=== PATIENT | male | born 1965 | race Caucasian/White ===

== ENCOUNTER 2021-11-08 19:22 | Inpatient (IN) ==
[2021-11-08] MEDS ORDERED: SODIUM CHLORIDE 0.9% 500 ML IV ONE (19:41)
[2021-11-08 20:00] LABS: Basophils # (auto) 0.04 K/uL (0-0.2); Basophils % (auto) 0.3 %; Eosinophils # (auto) 0.12 K/uL (0-0.5); Eosinophils % (auto) 0.9 %; Hematocrit (blood only) 50.5 % (42-52); Hemoglobin 18.1 g/dL (14.0-18.0); Immature Granulocytes # (auto) 0.05 K/uL (0.00-0.02); Immature Granulocytes % (auto) 0.4 %; Lymphocytes # (auto) 3.11 K/uL (1.2-3.4); Lymphocytes % (auto) 23.7 %; Mean Corpuscular Hemoglobin 33.5 pg (25-34); Mean Corpuscular Hgb Conc 35.8 g/dL (32-36); Mean Corpuscular Volume 93.5 fL (80-100); Mean Platelet Volume 9.5 fL (7.4-10.4); Monocytes # (auto) 1.05 K/uL (0.11-0.59); Neutrophils # (auto) 8.73 K/uL (1.4-6.5); Neutrophils % (auto) 66.7 %; Platelet Count 211 K/uL (130-400); RDW Coefficient of Variation 13.5 % (11.5-14.5); RDW Standard Deviation 46.4 fL (36.4-46.3)
[2021-11-08] MEDS ORDERED: FAMOTIDINE 20MG IV PUSH 20 MG/5 ML SYR IV STA (20:01)
--- NOTE | 2021-11-08 20:08 | Emergency Department Note ---
Impression & Plan NSTEMI (non-ST elevated myocardial infarction), CAD (coronary artery disease), S/P coronary artery stent placement ED Provider Note NAME: TU ARCHER AGE: 56 SEX: M ARRIVES VIA: Walk-In INFORMANT: Patient ED PROVIDER(S): Kevon Johansen MD CHIEF COMPLAINT: Chest pain PLAN: Disposition: Admit MEDICAL DECISION MAKING: The patient is a pleasant 56-year-old gentleman with a past medical history of CAD with history of SD in 2016 status post PCI who presents emergency department, by his for evaluation of substernal chest pain that he felt r adiates to his shoulder and arm which initially began this morning at 4 AM and woke him up from sleep. He reports he took a nitroglycerin at that time and the symptoms resolved over the course of an hour. He reports he was doing fine the rest of the day doing his normal activities and then took a nap around 4:00 but then woke up again around 530 with similar symptoms that have been constant sin e then. He reports he did go to bed last night at 2 AM which is not abnormal for him and he did have 2 slices of pizza prior to that. He does admit that he has a history of acid reflux and this feels somewhat like that as well. But he also reports that this feels somewhat like when he had his heart attack. He denies any recent fevers, chills, cough, congestion, diarrhea/constipation or symptoms. He reports he has not f/u with cardiology in several years. He has not needed to use his nitroglycerin since shortly after his stent in 2016. He takes a daily baby ASA. On arrival patient is no acute distress, afebrile stable vital signs. He appears clinically dry. Exam is otherwise unremarkable. EKG demonstrates anterior lateral ST and T wave abnormality without overt ST elevation. WBC 13K nonspecific. H/H 18.1/50.5 without recent values for comparison but in the setting of history of daily smoking. Platelets within normal limits. Chemistry without metabolic acidosis. Electrolytes without significant abnormality. AST 48, nonspecific. Initial high-sensitivity troponin was elevated at 2400. Lipase within normal limits. Upon reevaluation the patient denied any significant improvement in his symptoms after IV fluid hydration and IV Pepcid. Repeat EKG was performed and demonstrated more prominent T wave inversions V4-V6 but no overt ST elevation. The patient was given full dose aspirin and nitroglycerin. Case was discussed with Dr. Mercado, interventional cardiology on-call. Appreciate recommendations. We will continue with treatment for NSTEMI with heparin and pain control. If pain is able to be controlled then likely can have catheterization tomorrow. If the patient worsens and pain is not controlled then may consider intervention sooner. Upon re-evaluation the patient did feel significantly improved following SL nitroglycerin x3 and IV Fentanyl 50mcg x 1. Case was discussed with Dr. Melchor, [facility] hospitalist, who will evaluate the patient for admission. NTG paste ordered. Triage Nursing notes reviewed and agree them. Prior medical records reviewed Vital Signs: reviewed and remarkable for no significant abnormalities Differential diagnosis: Cardiac ischemia, aortic dissection, pulmonary embolism, pneumothorax, pneumonia, pericarditis, myocarditis, esophageal rupture, GERD, cholecystitis, pancreatitis, musculoskeletal, as well as other pathologies. ER treatment provided: See below. Diagnostics interpreted by me: ECG 1935: Sinus rhythm, 63 bpm, no ectopy, incomplete right bundle branch block, ST and T wave abnormality anterolaterally. No overt ST elevation or depression, QTC 403, QRS 110. ECG 2053: Sinus bradycardia, 58 bpm, no ectopy, incomplete right bundle branch block, ST abnormality with more evident TWI V4-V6. No overt ST elevation or depression, QTC 414, QRS 102. Cardiac Monitoring: An order for continuous cardiac monitoring was placed and demonstrated Sinus rhythm, 63 bpm, no ectopy. Laboratory studies: See below Imaging studies: See below Consultation(s): Dr. Mercado, interventional cardiology. Dr. Melchor [facility] hospitalist. HPI: The patient is a pleasant 56-year-old gentleman with a past medical history of CAD with history of SD in 2016 status post PCI who presents emergency de partment, by his for evaluation of substernal chest pain that he felt radiates to his shoulder and arm which initially began this morning at 4 AM and woke him up from sleep. He reports he took a nitroglycerin at that time and the symptoms resolved over the course of an hour. He reports he was doing fine the rest of the day doing his normal activities and then took a nap around 4:00 but then woke up again around 530 with similar symptoms that have been constant since then. He reports he did go to bed last night at 2 AM which is not abnormal for him and he did have 2 slices of pizza prior to that. He does admit that he has a history of acid reflux and this feels somewhat like that as well. But he also reports that this feels somewhat like when he had his heart attack. He denies any recent fevers, chills, cough, congestion, diarrhea/constipation or symptoms. He reports he has not f/u with cardiology in several years. He has not needed to use his nitroglycerin since shortly after his stent in 2016. He takes a daily baby ASA. ROS: See above HPI for pertinent positives & negatives. A total of 10 systems reviewed and were otherwise negative. VITALS:See Below PHYSICAL EXAMINATION: GENERAL: Awake, alert, well-appearing, in no distress HENT: Normocephalic, atraumatic. Oropharynx with dry mucous membranes and otherwise unremarkable. EYES: Normal conjunctiva. Sclera non-icteric. NECK: Supple. No nuchal rigidity. FROM. No JVD. RESPIRATORY: Clear to auscultation. CARDIAC: Regular rate, normal rhythm. Extremities warm and well perfused. Pulses equal. ABDOMEN: Soft, non-distended. No tenderness to palpation. No rebound or guarding. No masses. RECTAL: Deferred. MUSCULOSKELETAL: Chest examination reveals no tenderness. The back is symmetrical on inspection without obvious abnormality. There is no CVA tenderness to palpation. No joint edema. LOWER EXTREMITIES: Calves are equal size bilaterally and non-tender. No edema. No discoloration. NEURO: Normal sensorium. No sensory or motor deficits noted. SKIN: No rash or jaundice noted. ED COURSE: Critical Care: I have personally spent greater than 75 minutes of critical care time in the direct management of this patient. This includes bedside care, interpretation of diagnostic studies, and testing, discussion with consultants, patient, and family members, and other required patient management activities. This 75 minutes is in excess of all separately billable procedures. Kevon Johansen MD Past Med/Surg History Medical History (Updated 11/10/21 @ 11:04 by Kevon Johansen MD) CAD (coronary artery disease) Dyslipidemia NSTEMI (non-ST elevated myocardial infarction) Tobacco abuse Surgical History (Updated 11/10/21 @ 11:04 by Kevon Johansen MD) Hx of appendectomy Hx of cholecystectomy S/P coronary artery stent placement Social History Smoking Status: Current every day smoker Tobacco Type: Cigarettes Cigarettes Per Day: 1 pack; Smoking End Date: 11/08/2021; Second Hand Exposure: No; Do You Dip or Chew Tobacco: No; Tobacco Cessation Education Requested by Patient: Yes Hx Alcohol Use: No Hx Substance Use: No Preferred Language: Turkish Communication Ability: Effective Domestic Housekeeper Required: No Beliefs That Will Affect Care: None Current Living Situation: Spouse and Family Current Living Situation Comment: Lives at home w/ spouse and 2 children. Other Information That Helps Us Care for You: Yes (States that he quit smoking today.) Feels Safe at Home: Yes Safety Concerns: Feels Safe At This Time Assistive Devices: None Allergies Allergies Allergy/AdvReac Type Severity Reaction Status Date / Time Cephalosporins Allergy Severe HIVES Unverified 11/08/21 21:54 Home Meds Home Medications Medication Instructions Recorded Confirmed No Known Home Medications 11/08/21 11/08/21 Results & Data (ED) Vital Signs Vital Signs - 24 hr 11/08/21 19:27 11/08/21 19:49 11/08/21 21:22 Temperature 36.4 C L Temperature Source Temporal Artery Scan Pulse Rate 73 Pulse Rate [Apical] 71 Respiratory Rate 20 19 Respiratory Effort / Characteristics Non-Labored Respiratory Depth Normal Blood Pressure 116/77 Blood Pressure [Left Arm] 113/74 Blood Pressure Mean 90 Blood Pressure Mean [Left Arm] 87 Blood Pressure Position Sitting Pulse Oximetry 96 96 95 Oxygen Delivery Method Room Air Room Air Room Air Sepsis Recent Fever Within 48 Hours No Sepsis New/Unexplained Change in Mental Status N/A Sepsis Action Taken by Nursing No Action Required 11/08/21 23:00 Temperature Temperature Source Pulse Rate Pulse Rate [Apical] 61 Respiratory Rate 15 Respiratory Effort / Characteristics Respiratory Depth Blood Pressure Blood Pressure [Left Arm] 101/65 Blood Pressure Mean Blood Pressure Mean [Left Arm] 77 Blood Pressure Position Pulse Oximetry 95 Oxygen Delivery Method Room Air Sepsis Recent Fever Within 48 Hours Sepsis New/Unexplained Change in Mental Status Sepsis Action Taken by Nursing Laboratory Data Attestation: I reviewed the patient's lab results. Result diagrams: 11/10/21 05:34 11/10/21 05:34 Lab Results 11/08/21 11/08/21 11/08/21 Range/Units 19:43 19:43 19:43 WBC 13.10 H (4.8-10.8) K/uL RBC 5.40 (4.7-6.1) M/uL Hgb 18.1 H (14.0-18.0) g/dL Hct 50.5 (42-52) % MCV 93.5 (80-100) fL MCH 33.5 (25-34) pg MCHC 35.8 (32-36) g/dL RDW Std Deviation 46.4 H (36.4-46.3) fL RDW Coeff of Susanne 13.5 (11.5-14.5) % Plt Count 211 (130-400) K/uL MPV 9.5 (7.4-10.4) fL Immature Gran % (Auto) 0.4 % Neut % (Auto) 66.7 % Lymph % (Auto) 23.7 % [place] % (Auto) 8.0 % Eos % (Auto) 0.9 % Baso % (Auto) 0.3 % Neut # (Auto) 8.73 H (1.4-6.5) K/uL Lymph # (Auto) 3.11 (1.2-3.4) K/uL [place] # (Auto) 1.05 H (0.11-0.59) K/uL Eos # (Auto) 0.12 (0-0.5) K/uL Baso # (Auto) 0.04 (0-0.2) K/uL Immature Gran # (Auto) 0.05 H (0.00-0.02) K/uL APTT (21.0-31.0) Seconds PTT Ratio Sodium 135 L (136-145) mmol/L Potassium 4.1 (3.5-5.1) mmol/L Chloride 102 (98-107) mmol/L Carbon Dioxide 26 (21-32) mmol/L Anion Gap 7 (3-11) BUN 12 (6-23) mg/dl Creatinine 1.01 (0.6-1.4) mg/dl Est Cr Clr Drug Dosing 109.6 ml/min Est GFR ( Amer) 95.9 ml/min Est GFR (Non-Af Amer) 82.8 ml/min BUN/Creatinine Ratio 11.9 (10-20) Glucose 110 H (70-99(Fasting)) mg/dl Calcium 9.6 (8.5-10.1) mg/dl Phosphorus 3.8 (2.5-4.9) mg/dl Magnesium 2.0 (1.7-2.4) mg/dl Total Bilirubin 0.8 (0.2-1.0) mg/dl AST 48 H (13-39) U/L ALT 41 (7-52) U/L Alkaline Phosphatase 68 (34-104) U/L Troponin I High Sens 2457.1 H* (0-20) pg/ml Total Protein 7.0 (6.0-8.3) gm/dl Albumin 4.4 (3.4-5.0) gm/dl Globulin 2.6 (2.5-4.0) gm/dl Albumin/Globulin Ratio 1.7 (0.9-2) Lipase 50 (11-82) U/L SARS-CoV-2, RNA, NAAT (NEGATIVE) 11/08/21 11/08/21 Range/Units 19:43 21:34 WBC (4.8-10.8) K/uL RBC (4.7-6.1) M/uL Hgb (14.0-18.0) g/dL Hct (42-52) % MCV (80-100) fL MCH (25-34) pg MCHC (32-36) g/dL RDW Std Deviation (36.4-46.3) fL RDW Coeff of Susanne (11.5-14.5) % Plt Count (130-400) K/uL MPV (7.4-10.4) fL Immature Gran % (Auto) % Neut % (Auto) % Lymph % (Auto) % [place] % (Auto) % Eos % (Auto) % Baso % (Auto) % Neut # (Auto) (1.4-6.5) K/uL Lymph # (Auto) (1.2-3.4) K/uL [place]pton # (Auto) (0.11-0.59) K/uL Eos # (Auto) (0-0.5) K/uL Baso # (Auto) (0-0.2) K/uL Immature Gran # (Auto) (0.00-0.02) K/uL APTT 27.9 (21.0-31.0) Seconds PTT Ratio 1.0 Sodium (136-145) mmol/L Potassium (3.5-5.1) mmol/L Chloride (98-107) mmol/L Carbon Dioxide (21-32) mmol/L Anion Gap (3-11) BUN (6-23) mg/dl Creatinine (0.6-1.4) mg/dl Est Cr Clr Drug Dosing ml/min Est GFR ( Amer) ml/min Est GFR (Non-Af Amer) ml/min BUN/Creatinine Ratio (10-20) Glucose (70-99(Fasting)) mg/dl Calcium (8.5-10.1) mg/dl Phosphorus (2.5-4.9) mg/dl Magnesium (1.7-2.4) mg/dl Total Bilirubin (0.2-1.0) mg/dl AST (13-39) U/L ALT (7-52) U/L Alkaline Phosphatase (34-104) U/L Troponin I High Sens (0-20) pg/ml Total Protein (6.0-8.3) gm/dl Albumin (3.4-5.0) gm/dl Globulin (2.5-4.0) gm/dl Albumin/Globulin Ratio (0.9-2) Lipase (11-82) U/L SARS-CoV-2, RNA, NAAT NEGATIVE (NEGATIVE) Administered Medications Aspirin (Aspirin 81 Mg Ectab) 81 mg PO [facility] Stop: 12/09/21 09:44 Last Admin: 11/10/21 08:20 Dose: 81 mg Documented by: [id number] Admin: 11/09/21 10:17 Dose: 81 mg Documented by: [id number] Atorvastatin Calcium (Atorvastatin 40 Mg Tab) 40 mg PO [facility] Stop: 12/09/21 20:59 Last Admin: 11/09/21 20:56 Dose: 40 mg Documented by: [id number] Nitroglycerin (Nitroglycerin Sl 0.4 Mg/Tab Tab) 0.4 mg SL UD PRN PRN Reason: Chest Pain Stop: 12/08/21 20:40 Last Admin: 11/08/21 21:06 Dose: 0.4 mg Documented by: [id number] Admin: 11/08/21 20:55 Dose: 0.4 mg Documented by: [id number] Discontinued Medications Aspirin (Aspirin Chew 324 Mg) 324 mg PO NOW STA Stop: 11/08/21 20:42 Last Admin: 11/08/21 20:54 Dose: 324 mg Documented by: [id number] Atropine Sulfate (Atropine Sulfate 0.1 Mg/Ml 10ml Syr) Confirm Administered Dose 1 mg IV .ST-MED ONE Stop: 11/09/21 13:48 Last Admin: 11/10/21 07:24 Dose: Not Given Documented by: [id number] Clopidogrel Bisulfate (Clopidogrel Bisulfate 300 Mg Tab) Confirm Administered Dose 600 mg .ROUTE .ST-[facility] ONE Stop: 11/09/21 14:13 Last Admin: 11/09/21 15:15 Dose: Not Given Documented by: [id number] Fentanyl Citrate (Fentanyl Citrate 100 Mcg/2 Ml Vial) 50 mcg IV NOW STA Stop: 11/08/21 21:30 Last Admin: 11/08/21 21:47 Dose: 50 mcg Documented by: [id number] Fentanyl Citrate (Fentanyl Citrate 100 Mcg/2 Ml Vial) Confirm Administered Dose 100 mcg .ROUTE .ST-MED ONE Stop: 11/09/21 12:25 Last Increment: 11/09/21 14:11 Dose: 75 mcg Documented by: [id number] Heparin Sodium (Porcine) (Heparin Sod (Porcine) 1000 Unit/Ml) 1 units IV NOW ONE Stop: 11/08/21 21:24 Last Admin: 11/08/21 21:28 Dose: 4,000 units Documented by: [id number] Cosigned by: [id number] Heparin Sodium (Porcine) (Heparin Sod (Porcine) 1000 Unit/Ml) 4,000 units IV NOW ONE Stop: 11/09/21 05:16 Last Admin: 11/09/21 05:19 Dose: 4,000 units Documented by: [id number] Cosigned by: [id number] Heparin Sodium (Porcine) (Heparin (Porcine) 1000 Unit/Ml 10 Ml (Senior Pastor Use Only)) Confirm Administered Dose 10,000 units .ROUTE .ST-MED ONE Stop: 11/09/21 12:25 Last Admin: 11/09/21 13:57 Dose: 8,000 units Documented by: [id number] Heparin Sodium/Dextrose (Heparin Iv Adult Wt-Based Low-Dose With Bolus Protocol) 1 ea N/A NOW STA; Protocol Stop: 11/08/21 21:08 Last Admin: 11/08/21 23:32 Dose: Not Given Documented by: [id number] Heparin Sodium/Sodium Chloride (Heparin In Nss Infusion 1000 Unit/500 Ml (2 U/Ml) Bag) Confirm Administered Dose 3,000 units IV .STK-MED ONE Stop: 11/09/21 12:25 Last Admin: 11/09/21 13:09 Dose: 3,000 units Documented by: [id number] Sodium Chloride (Nss) 500 mls @ 999 mls/hr IV .Q31M ONE Stop: 11/08/21 20:11 Last Infusion: 11/08/21 20:24 Dose: 0 mls/hr Documented by: [id number] Admin: 11/08/21 19:49 Dose: 999 mls/hr Documented by: [id number] Famotidine (Pepcid 20mg Iv Push) 20 mg in 5 mls @ 2.5 mls/min IV NOW STA Stop: 11/08/21 20:02 Last Admin: 11/08/21 20:07 Dose: 2.5 mls/min Documented by: [id number] Heparin Sodium/Dextrose (Heparin Sodium/Dextrose) 25,000 units in 500 mls @ 24 mls/hr IV .[id number] [facility]; Protocol Stop: 12/08/21 21:29 Last Titration: 11/09/21 15:54 Dose: 0 units/hr, 0 mls/hr Documented by: [id number] Cosigned by: [id number] Titration: 11/09/21 05:21 Dose: 1,200 units/hr, 24 mls/hr Documented by: [id number] Cosigned by: [id number] Admin: 11/08/21 21:29 Dose: 1,000 units/hr, 20 mls/hr Documented by: [id number] Cosigned by: [id number] Sodium Chloride (Nss 1000ml) 1,000 mls @ 150 mls/hr IV .[id number] [facility]AC[facility] Stop: 11/09/21 01:47 Last Infusion: 11/09/21 09:28 Dose: 0 mls/hr Documented by: [id number] Admin: 11/09/21 01:40 Dose: 150 mls/hr Documented by: [id number] Metoprolol Tartrate (Metoprolol Tartrate 25 Mg Tab) 25 mg PO ONE STA Stop: 11/09/21 09:06 Last Admin: 11/09/21 09:52 Dose: 25 mg Documented by: [id number] Midazolam HCl (Midazolam Hcl 1 Mg/Ml 2ml Vial) Confirm Administered Dose 2 mg .ROUTE .STK-MED ONE Stop: 11/09/21 12:25 Last Admin: 11/09/21 14:05 Dose: 2 mg Documented by: [id number] Nicardipine HCl (Nicardipine Hcl Inj 2.5 Mg/Ml 10 Ml Amp) Confirm Administered Dose 25 mg .ROUTE .STK-MED ONE Stop: 11/09/21 12:25 Last Admin: 11/09/21 13:09 Dose: 25 mg Documented by: [id number] Nitroglycerin (Nitroglycerin 2% Ointment 30gm Tube) 1 inch EXT NOW STA Stop: 11/08/21 22:27 Last Admin: 11/09/21 01:36 Dose: Not Given Documented by: [id number] Nitroglycerin/Dextrose (Nitroglycerin/D5w 100mcg/Ml 20ml Syr) Confirm Administered Dose 2,000 mcg .ROUTE .STK-MED ONE Stop: 11/09/21 12:26 Last Admin: 11/09/21 13:09 Dose: 2,000 mcg Documented by: [id number] Potassium Chloride (Potassium Chloride 20meq/15ml 473ml) 30 meq PO ONE ONE Stop: 11/10/21 07:46 Last Admin: 11/10/21 08:20 Dose: 30 meq Documented by: [id number] Imaging Data Radiologist's Impression: Chest X-Ray 11/08/21 19:41 XR chest 1V portable HISTORY: Atypical Chest Pain COMPARISON: Chest 11/20/2015. FINDINGS: The cardiac silhouette remains borderline enlarged. There is mild diffuse interstitial thickening, unchanged. No new focal lung consolidations to suggest pneumonia. No evidence for pulmonary edema. No pleural effusions. No pneumothorax. Spinal stimulator leads are again noted. IMPRESSION: No significant change compared to the prior study. No acute process. ACT 112: Negative or not required by law. Electronically signed by: Joel Nolasco M.D. 11/08/2021 8:15 PM Discharge Plan Visit Data Chief Complaint: Chest Pain Stated Complaint: PAIN RADIATING DOWN L ARM, HEART BURN ED Provider: Kevon Johansen Discharge Problem: NSTEMI (non-ST elevated myocardial infarction), CAD (coronary artery disease), S/P coronary artery stent placement Patient Disposition: Admitted As Inpatient Discharge Instructions Interventions: ED Discharge Assessment Last Done: 11/09/21 00:21 Discharge Problem: CAD (coronary artery disease) Qualifiers: Coronary Disease-Associated Artery/Lesion type: unspecified vessel or lesion type [place] vs. transplanted heart: [place] heart Associated angina: with unspecified form of angina Qualified Code(s): I25.119 - Atherosclerotic heart disease of [place] coronary artery with unspecified angina pectoris
--- NOTE | 2021-11-08 20:17 | XRay Report ---
XR chest 1V portable HISTORY: Atypical Chest Pain COMPARISON: Chest 11/20/2015. FINDINGS: The cardiac silhouette remains borderline enlarged. There is mild diffuse interstitial thic kening, unchanged. No new focal lung consolidations to suggest pneumonia. No evidence for pulmonary e sandie. No pleural effusions. No pneumothorax. Spinal stimulator leads are again noted. IMPRESSION: No significant change compared to the prior study. No acute process. ACT 112: Negative or not required by law. Electronically signed by: Joel Nolasco M.D. 11/08/2021 8:15 PM
[2021-11-08 20:32] LABS: Albumin Globulin Ratio 1.7 (0.9-2); Albumin Level 4.4 gm/dl (3.4-5.0); BUN Creatinine Ratio 11.9 (10-20); Bilirubin,Total 0.8 mg/dl (0.2-1.0); Calcium 9.6 mg/dl (8.5-10.1); Creatinine Clr Calc Pharmacy 109.6 ml/min; Est GFR (African American) 95.9 ml/min; Est GFR (Non-African American) 82.8 ml/min; Globulin 2.6 gm/dl (2.5-4.0); Phosphorus 3.8 mg/dl (2.5-4.9); Potassium 4.1 mmol/L (3.5-5.1)
[2021-11-08] MEDS ORDERED: ASPIRIN CHEW 324 MG PO STA (20:41)
[2021-11-08] MEDS: NITROGLYCERIN SL 0.4 MG/TAB TAB SL PRN ×2 (20:55→21:06)
[2021-11-08] MEDS ORDERED: Heparin IV Adult Wt-Based Low-Dose WITH Bolus Protocol STA (21:07)
[2021-11-08] MEDS ORDERED: HEPARIN SOD (PORCINE) 1000 UNIT/ML IV ONE (21:23)
[2021-11-08] MEDS ORDERED: fentaNYL citrate 100 MCG/2 ML VIAL IV STA (21:29)
[2021-11-08] MEDS ORDERED: HEPARIN SODIUM/DEXTROSE 25,000 UNITS/500 ML BAG IV SCH (21:30)
[2021-11-08 21:40] LABS: Partial Thromboplastin Time 27.9 Seconds (21.0-31.0)
[2021-11-08] MEDS ORDERED: NITROGLYCERIN 2% OINTMENT 30GM TUBE EXT STA (22:26)
--- NOTE | 2021-11-08 23:19 | History & Physical Report ---
Date of Service November 08, 2021 Assessment & Plan (1) NSTEMI (non-ST elevated myocardial infarction): Plan: 56 yo male with PMHx of CAD s/p MN in 2016 with stent placement presenting with chest pain similar to prior MN. HS-trop elevated at 2457, EKG w/o ST elevations. -Admit to PCU -Continue to trend troponin until peak -Check 2D echo -Continue heparin gtt -BPs soft on admission w/ systolic at 100 will give 1L NSS IVF bolus -Encouraged smoking cessation -Cardiology consultation appreciated -Will keep patient NPO for possible catheterization tomorrow History of Present Illness Primary Care Provider: Torito Mercado MD Patient is a 56 yo male with PMHx of CAD with MN 11/2015 s/p PCI being admitted for NSTEMI. Patient states that he initially began to have left sided chest pressure and "heart burn" sensation around 0400 this morning. He took a nitroglycerin which relieved the pain. Patient slept throughout the day and did not have any PO intake. He woke from his nap around 1730 with similar left sided chest pain, nausea, and vomiting x1. Pain has been constant since that time. Pain initially 8/10 and now slightly improved to a 5/10. Patient notes that this feels similar to his hx of MN as well as his hx of GERD. He takes ASA 81mg qAM but is otherwise on no other home medications. Patient is a tobacco user and smokes about 1ppd. No alcohol use. Patient denies recent illness and states that prior to this morning he was in his usual state of health. Patient denies fever, chills, congestion, sinus pain, SOB, cough, abd pain, weakness, fatigue, numbness, tingling, urinary symptoms (e.g. dysuria or hematuria), or any other symptoms. In the ED, patient was found to have a high sensitivity troponin of 2457. WBC 13.1. H&H 18.1 & 50.5 EKG shows incomplete RBBB and T wave changes in the lateral leads which is new compared to EKG from 11/2015. COVID negative. Allergies Allergy/AdvReac Type Severity Reaction Status Date / Time Cephalosporins Allergy Severe HIVES Unverified 11/08/21 21:54 Home Medications Medication Instructions Recorded Confirmed Type No Known Home Medications 11/08/21 11/08/21 History Past Med/Surg History Medical History (Updated 11/09/21 @ 09:36 by Daniel Damian MD) CAD (coronary artery disease) Dyslipidemia NSTEMI (non-ST elevated myocardial infarction) Tobacco abuse Surgical History (Updated 11/09/21 @ 09:36 by Daniel Damian MD) Hx of appendectomy Hx of cholecystectomy S/P coronary artery stent placement Social History Smoking Status: Current every day smoker Tobacco Type: Cigarettes Cigarettes Per Day: 1 pack; Smoking End Date: 11/08/2021; Second Hand Exposure: No; Do You Dip or Chew Tobacco: No; Tobacco Cessation Education Requested by Patient: Yes Hx Alcohol Use: No Hx Substance Use: No Preferred Language: Persian Communication Ability: Effective Clinical Support Specialist Required: No Beliefs That Will Affect Care: None Current Living Situation: Spouse and Family Current Living Situation Comment: Lives at home w/ spouse and 2 children. Other Information That Helps Us Care for You: Yes (States that he quit smoking today.) Feels Safe at Home: Yes Safety Concerns: Feels Safe At This Time Assistive Devices: None Review of Systems Review of Systems: See HPI Physical Exam Physical Exam: GENERAL: No acute distress. Well developed and well nourished. A/O x3. EYES: PERRLA. EOMI. Anicteric sclerae. HENT: Edentulous. Moist mucous membranes. No pharyngeal erythema or exudates. RESPIRATORY: Clear to auscultation bilaterally. No wheezing, rales, or rhonchi. CARDIOVASCULAR: Regular rate and rhythm. No murmurs. ABDOMEN: Soft, non-tender and non-distended. Normal bowel sounds. EXTREMITIES: No edema. Non-tender. 5/5 audio visual tech strength bilaterally. 5/5 strength in BUE and BLE. SKIN: Warm, dry. No rashes or lesions. NEUROLOGIC: No focal neurological deficits. CN II-XII grossly intact. PSYCHIATRIC: Cooperative. Appropriate mood and affect. Results & Data Results & Data ([facility]) Vital Signs (Past 12 Hours) Vital Signs Temp Pulse Pulse Resp BP BP Pulse Ox 11/08/21 23:00 61 15 101/65 95 11/08/21 21:22 71 19 113/74 95 11/08/21 19:49 96 11/08/21 19:27 36.4 C L 73 20 116/77 96 Laboratory Results 11/08/21 11/08/21 11/08/21 Range/Units 21:34 19:43 19:43 WBC (4.8-10.8) K/uL RBC (4.7-6.1) M/uL Hgb (14.0-18.0) g/dL Hct (42-52) % MCV (80-100) fL MCH (25-34) pg MCHC (32-36) g/dL RDW Std Deviation (36.4-46.3) fL RDW Coeff of Susanne (11.5-14.5) % Plt Count (130-400) K/uL MPV (7.4-10.4) fL Immature Gran % (Auto) % Neut % (Auto) % Lymph % (Auto) % [place] % (Auto) % Eos % (Auto) % Baso % (Auto) % Neut # (Auto) (1.4-6.5) K/uL Lymph # (Auto) (1.2-3.4) K/uL [place] # (Auto) (0.11-0.59) K/uL Eos # (Auto) (0-0.5) K/uL Baso # (Auto) (0-0.2) K/uL Immature Gran # (Auto) (0.00-0.02) K/uL APTT 27.9 (21.0-31.0) Seconds PTT Ratio 1.0 Sodium 135 L (136-145) mmol/L Potassium 4.1 (3.5-5.1) mmol/L Chloride 102 (98-107) mmol/L Carbon Dioxide 26 (21-32) mmol/L Anion Gap 7 (3-11) BUN 12 (6-23) mg/dl Creatinine 1.01 (0.6-1.4) mg/dl Est Cr Clr Drug Dosing 109.6 ml/min Est GFR ( Amer) 95.9 ml/min Est GFR (Non-Af Amer) 82.8 ml/min BUN/Creatinine Ratio 11.9 (10-20) Glucose 110 H (70-99(Fasting)) mg/dl Calcium 9.6 (8.5-10.1) mg/dl Phosphorus 3.8 (2.5-4.9) mg/dl Magnesium 2.0 (1.7-2.4) mg/dl Total Bilirubin 0.8 (0.2-1.0) mg/dl AST 48 H (13-39) U/L ALT 41 (7-52) U/L Alkaline Phosphatase 68 (34-104) U/L Troponin I High Sens (0-20) pg/ml Total Protein 7.0 (6.0-8.3) gm/dl Albumin 4.4 (3.4-5.0) gm/dl Globulin 2.6 (2.5-4.0) gm/dl Albumin/Globulin Ratio 1.7 (0.9-2) Lipase 50 (11-82) U/L SARS-CoV-2, RNA, NAAT NEGATIVE (NEGATIVE) 11/08/21 11/08/21 Range/Units 19:43 19:43 WBC 13.10 H (4.8-10.8) K/uL RBC 5.40 (4.7-6.1) M/uL Hgb 18.1 H (14.0-18.0) g/dL Hct 50.5 (42-52) % MCV 93.5 (80-100) fL MCH 33.5 (25-34) pg MCHC 35.8 (32-36) g/dL RDW Std Deviation 46.4 H (36.4-46.3) fL RDW Coeff of Susanne 13.5 (11.5-14.5) % Plt Count 211 (130-400) K/uL MPV 9.5 (7.4-10.4) fL Immature Gran % (Auto) 0.4 % Neut % (Auto) 66.7 % Lymph % (Auto) 23.7 % [place] % (Auto) 8.0 % Eos % (Auto) 0.9 % Baso % (Auto) 0.3 % Neut # (Auto) 8.73 H (1.4-6.5) K/uL Lymph # (Auto) 3.11 (1.2-3.4) K/uL [place] # (Auto) 1.05 H (0.11-0.59) K/uL Eos # (Auto) 0.12 (0-0.5) K/uL Baso # (Auto) 0.04 (0-0.2) K/uL Immature Gran # (Auto) 0.05 H (0.00-0.02) K/uL APTT (21.0-31.0) Seconds PTT Ratio Sodium (136-145) mmol/L Potassium (3.5-5.1) mmol/L Chloride (98-107) mmol/L Carbon Dioxide (21-32) mmol/L Anion Gap (3-11) BUN (6-23) mg/dl Creatinine (0.6-1.4) mg/dl Est Cr Clr Drug Dosing ml/min Est GFR ( Amer) ml/min Est GFR (Non-Af Amer) ml/min BUN/Creatinine Ratio (10-20) Glucose (70-99(Fasting)) mg/dl Calcium (8.5-10.1) mg/dl Phosphorus (2.5-4.9) mg/dl Magnesium (1.7-2.4) mg/dl Total Bilirubin (0.2-1.0) mg/dl AST (13-39) U/L ALT (7-52) U/L Alkaline Phosphatase (34-104) U/L Troponin I High Sens 2457.1 H* (0-20) pg/ml Total Protein (6.0-8.3) gm/dl Albumin (3.4-5.0) gm/dl Globulin (2.5-4.0) gm/dl Albumin/Globulin Ratio (0.9-2) Lipase (11-82) U/L SARS-CoV-2, RNA, NAAT (NEGATIVE) Diagnostic Findings [place] [phone] XRay Report Patient:TU ARCHER Admit Date:11/08/21 MR#:[id number] Address1:[address] [place] [address] Acct ID:[id number] Address2: Date:1965 [facility] Zip:[place] [address] Age:56 Location:ED Sex:M Room/Bed: Att Phy: Diagnosis:PAIN RADIATING DOWN L ARM, HEART BURN Yumiko Phy:PCP,NO Service Date:11/08/21 Fam Phy: Interpreting Phy:Joel Nolasco MDAdmit Phy: Ordering Phy:Kevon Johansen M.D. cc: ~ XR chest 1V portable HISTORY: Atypical Chest Pain COMPARISON: Chest 11/20/2015. FINDINGS: The cardiac silhouette remains borderline enlarged. There is mild diffuse interstitial thickening, unchanged. No new focal lung consolidations to suggest pneumonia. No evidence for pulmonary edema. No pleural effusions. No pneumothorax. Spinal stimulator leads are again noted. IMPRESSION: No significant change compared to the prior study. No acute process. ACT 112: Negative or not required by law. Electronically signed by: Joel Nolasco M.D. 11/08/2021 8:15 PM Dictated:11/08/212013 Transcribed: 11/08/212013 Supervising Physician Co-Signing Physician Notes Attending addendum: I have physically seen this patient, have supervised the medical residents activities, and agree with the H&P unless as otherwise noted. Assessment and Plan: NSTEMI/CAD/stented coronary artery- The patient will be admitted to telemetry for serial cardiac enzymes, serial EKG's, cardiac rhythm monitoring and a 2-D echocardiogram with Dopplers Troponin 2457.1 Given for low-dose aspirin 324 mg Aspirin 81 mg daily Continue heparin drip per standard protocol Tobacco cessation counseling Consult cardiology, Dr. Mercado aware Remaining orders and notations as noted Resident Activity Tracking Resident Involvement: Resident Care Provided Care Provided: Adult Hospital Medicine
[2021-11-09] MEDS ORDERED: SODIUM CHLORIDE 0.9% 1000ML 1,000 ML IV SCH (00:37)
[2021-11-09] MEDS ORDERED: NITROGLYCERIN SL 0.4 MG/TAB TAB SL PRN (00:37)
[2021-11-09] MEDS ORDERED: ACETAMINOPHEN 325 MG TAB PO PRN (00:37)
[2021-11-09] MEDS ORDERED: POLYETHYLENE (MIRALAX) 17 GM PACK PO PRN (00:37)
[2021-11-09] MEDS ORDERED: ONDANSETRON INJ 2 MG/ML 2 ML VIAL IV PRN (00:37)
[2021-11-09 04:15] LABS: Basophils # (auto) 0.04 K/uL (0-0.2); Basophils % (auto) 0.3 %; Eosinophils # (auto) 0.21 K/uL (0-0.5); Eosinophils % (auto) 1.6 %; Hematocrit (blood only) 46.7 % (42-52); Hemoglobin 16.5 g/dL (14.0-18.0); Immature Granulocytes # (auto) 0.04 K/uL (0.00-0.02); Immature Granulocytes % (auto) 0.3 %; Lymphocytes # (auto) 3.84 K/uL (1.2-3.4); Lymphocytes % (auto) 29.7 %; Mean Corpuscular Hemoglobin 33.4 pg (25-34); Mean Corpuscular Hgb Conc 35.3 g/dL (32-36); Mean Corpuscular Volume 94.5 fL (80-100); Mean Platelet Volume 9.5 fL (7.4-10.4); Monocytes # (auto) 1.17 K/uL (0.11-0.59); Neutrophils # (auto) 7.64 K/uL (1.4-6.5); Neutrophils % (auto) 59.1 %; Platelet Count 186 K/uL (130-400); RDW Coefficient of Variation 13.6 % (11.5-14.5); RDW Standard Deviation 46.9 fL (36.4-46.3); Red Blood Count 4.94 M/uL (4.7-6.1); White Blood Count 12.94 K/uL (4.8-10.8)
[2021-11-09 04:32] LABS: Partial Thromboplastin Ratio 1.3; Partial Thromboplastin Time 34.5 Seconds (21.0-31.0)
[2021-11-09 04:48] LABS: BUN Creatinine Ratio 12.6 (10-20); Calcium 8.9 mg/dl (8.5-10.1); Creatinine Clr Calc Pharmacy 117.5 ml/min; Est GFR (African American) 103.3 ml/min; Est GFR (Non-African American) 89.1 ml/min
[2021-11-09] MEDS ORDERED: HEPARIN SOD (PORCINE) 1000 UNIT/ML IV ONE (05:15)
--- NOTE | 2021-11-09 06:59 | Hospitalist Progress Note ---
Date of Service November 09, 2021 Assessment & Plan (1) NSTEMI (non-ST elevated myocardial infarction): Plan: 56 yo male with PMHx of CAD s/p CT in 2016 with stent placement presenting w/ NSTEMI and is s/p stent placement. -HS-trop elevated at 2457, EKG w/o ST elevations. -TTE: echo: EF 50-55%. Mild hypokinesis of inferior wall. Severe hypokinesis of inferolateral. Mild concentric lvh. Normal RV size w/ mildly reduced systolic function. Mild AR. -Continue heparin gtt -Encouraged smoking cessation -Cardiology consultation appreciated. Loaded with clopidogrel 600 mg in [employer] -Cardiology recs: Continue dual-antiplatelet therapy for at least 1 year, likely extended therapy in the setting of overlapping stents and ectatic distal RCA. Continue statin, and ASCVD risk factor modification. Consult cardiac Rehab (2) S/P coronary artery stent placement: (3) Tobacco abuse: (4) Dyslipidemia: (5) CAD (coronary artery disease): Plan: FEN/GI: HH. ppx: scds. defer chemoppx code: full dispo: PCU Admission and Anticipated Discharge Date Admission Date: November 08, 2021 Supervising Physician Co-Signing Physician Notes I personally examined the patient and verified all arboleda points of history and exam, discussed case, and agree with decision making with Dr Thompson feeling better pain free. ready to quit smoking. walks dog sometimes, cuts grass - but no regular or deliberate exercise. eating habits mostly protein in starch, although not opposed to vegetables vitals noted nad heent nc at mmm breathing unlabored no accessory muscles good effort skin no rashes no pallor or icterus NSTEMI - CAD risks smoking, dyslipidemia, sedentary lifestyle. for cath today. med management, secondary risk reduction (discussed smoke cessation, regular exercise, mediterannean diet). otherwise as above Subjective No current symptoms other than L arm pain (started along w/ the chest pain that led to admission). No paresthesias. Denies chest pain, sob. Other ROS neg. MGF passed from CT in 50s. Patient is not diabetic. His symptoms started at rest and were not exertional. He had 2 episodes. No hx of chest pain prior. 40 year current smoker. Review of Systems Review of Systems: All systems reviewed & are unremarkable except as noted in HPI & below Physical Exam Physical Exam: General: Grossly A&O. NAD. Cooperative. HEENT: Atraumatic, normocephalic. EOMI Pulm: CTAB anteriorly. -wheezes, -rales, -rhonchi. No respiratory distress. Cardiac: RRR, -mrg. Slightly puffy lower extremity, no pitting appreciated. Abdominal: Nontender, nondistended, soft. Results & Data Results & Data ([facility]) Vital Signs (Past 12 Hours) Vital Signs Temp Pulse Pulse Resp BP BP Pulse Ox 11/09/21 03:41 37.0 C 67 18 94/62 L 96 11/09/21 00:51 36.7 C 57 L 20 123/77 97 11/09/21 00:50 64 11/08/21 23:00 61 15 101/65 95 11/08/21 21:22 71 19 113/74 95 11/08/21 19:49 96 11/08/21 19:27 36.4 C L 73 20 116/77 96 Resident Activity Tracking Resident Involvement: Resident Care Provided Care Provided: Adult Hospital Medicine
[2021-11-09 08:52] LABS: Estimated Average Glucose 111 mg/dl; Hemoglobin A1C 5.5 % (4.5-5.6)
[2021-11-09] MEDS ORDERED: METOPROLOL TARTRATE 25 MG TAB PO STA (09:05)
--- NOTE | 2021-11-09 09:27 | Cardiology Consultation ---
Date of Consultation November 09, 2021 Assessment & Plan (1) NSTEMI (non-ST elevated myocardial infarction): (2) CAD (coronary artery disease): (3) Tobacco abuse: (4) Dyslipidemia: (5) S/P coronary artery stent placement: ASSESSMENT/PLAN: 1. NSTEMI: Currently angina free. Continue heparin drip. Start aspirin 81 mg daily. Receive full-dose aspirin on 11/08/2021. Will start low-dose beta- rc if blood pressure improves and heart rate allows. Currently mildly hypotensive. Recommend low-dose TESHA-inhibitor if blood pressure allows. Echo pending. Cardiac catheterization recommended. Risks and benefits discussed in detail. He was made aware that CT surgery is not available at this facility. If recurrent chest pain, he was asked to notify nursing staff immediately. 2. CAD s/p RCA PCI: Other than aspirin 81 mg daily, he has not been taking any medications since 2016. High-intensity statin therapy recommended. Beta- rc and TESHA-inhibitor if able as above. 3. Dyslipidemia: LDL elevated for history of CAD. High-intensity statin therapy will be initiated. 4. Tobacco abuse: Recommended that he stop smoking. 5. Disposition: Cardiology will continue to follow. Patient care communicated with Dr. Hernandez of the primary hospitalist service. Discussed plan of care and findings with his , daughter, and [id number] in the waiting room. Cardiac rehab on discharge. Highly complex medical issues. Thank you for allowing me to participate in the care of your patient. Please call for any other questions or concerns. Sincerely, Zhou Damian M.D. History of Present Illness Reason for Consultation: NSTEMI Requesting Physician: Nery Christopher Attending Physician: Nick Hernandez DO History of Present Illness Mr. Alvarado is a very pleasant 56-year-old gentleman with a history significant for CAD s/p RCA STEMI (11/20/15) and PCI x 2, tobacco abuse, and dyslipidemia. He has not followed with Cardiology since October of 2016. He has had the following studies/procedures: 1. Cardiac catheterization 11/20/2015 [facility]: Proximal LAD 20%. Mid circumflex 30%. [id number] collaterals. Dominant RCA. Proximal to mid RCA 100% thrombotic occlusion. Underwent PCI with 2.5 x 22 resolute GARFIELD proximal to mid RCA and 3.5 x 18 mm resolute GARFIELD proximal RCA stent. 2. Echo 11/20/2015 [facility]: EF 55%. Inferior hypokinesis. No significant valvular abnormalities. He was admitted on 11/08/2021 with chest discomfort and elevated troponins. At approximately 4:00 a.m. on 11/08/2021, he developed left-sided chest pain described as a heartburn sensation with radiation to the left arm. This occurred while sitting. There was mild shortness of breath but no diaphoresis. He took nitroglycerin and symptoms completely resolved. He then took a nap in the afternoon but when he woke up at 5:30 p.m., he once again was sitting at the table and developed even worse chest discomfort with radiation to left arm. His brought him to the emergency department. He received nitroglycerin x3 and aspirin and chest discomfort completely resolved. Left arm pain persisted, and overnight gradually improved before completely resolving this morning. He lives an active lifestyle but does not participate dedicated exercise. He is chronic and stable dyspnea with exertion but no acute worsening leading up to this presentation. He denies exertional chest discomfort, syncope, near- syncope, palpitations, edema, or bleeding such as melena, hematochezia, or hematuria. He takes only aspirin 81 mg daily at home. He had been on a statin in the past and carvedilol but discontinued all of these medications a year following his AL. he has not followed up with Cardiology or PCP since at least 2017. Review of systems: As above. Review of systems otherwise negative/unremarkable. Family history: Grandmother had CAD. Social history: Smokes 1 pack per day for at least 40 years. No alcohol or drugs. Lives at home with his and 2 children (adult son and daughter). He has not worked since 2002 following back injury requiring surgery. He was unaccompanied in his hospital room. Allergies Allergy/AdvReac Type Severity Reaction Status Date / Time Cephalosporins Allergy Severe HIVES Unverified 11/08/21 21:54 Home Medications Medication Instructions Recorded Confirmed Type No Known Home Medications 11/08/21 11/08/21 History Patient History Medical History (Updated 11/09/21 @ 09:36 by Daniel Damian MD) CAD (coronary artery disease) Dyslipidemia NSTEMI (non-ST elevated myocardial infarction) Tobacco abuse Surgical History (Updated 11/09/21 @ 09:36 by Daniel Damian MD) Hx of appendectomy Hx of cholecystectomy S/P coronary artery stent placement Social History Smoking Status: Current every day smoker Tobacco Type: Cigarettes Cigarettes Per Day: 1 pack; Smoking End Date: 11/08/2021; Second Hand Exposure: No; Do You Dip or Chew Tobacco: No; Tobacco Cessation Education Requested by Patient: Yes Hx Alcohol Use: No Hx Substance Use: No Preferred Language: Greenlandic Communication Ability: Effective Copy Editor Required: No Beliefs That Will Affect Care: None Current Living Situation: Spouse and Family Current Living Situation Comment: Lives at home w/ spouse and 2 children. Other Information That Helps Us Care for You: Yes (States that he quit smoking today.) Feels Safe at Home: Yes Safety Concerns: Feels Safe At This Time Assistive Devices: None Physical Exam Physical Exam: Gen.: No acute distress. Alert and oriented. HEENT: Anicteric sclera. Neck: No JVD. No bruits. Normal carotid upstrokes bilaterally. Cardiac: PMI was nonpalpable. No ventricular heave. Regular. Normal S1-S2. No murmurs, rubs, or gallops. Pulmonary: Clear to auscultation bilaterally without wheezes, rales, or rhonchi. Abdomen: Soft, nontender, nondistended, with normoactive bowel sounds. No bruits noted. Extremities: 2+ radial pulses bilaterally. 2+ posterior tibialis pulses bilaterally. No edema or cyanosis. Psychiatric: Affect appears appropriate. Results & Data ([facility]) Vital Signs (Past 12 Hours) Vital Signs Temp Pulse Pulse Resp BP BP Pulse Ox 11/09/21 08:14 36.5 C 62 18 99/65 L 94 11/09/21 03:41 37.0 C 67 18 94/62 L 96 11/09/21 00:51 36.7 C 57 L 20 123/77 97 11/09/21 00:50 64 11/08/21 23:00 61 15 101/65 95 Laboratory Results Laboratory Results - last 24 hr 11/08/21 11/08/21 11/08/21 19:43 19:43 19:43 WBC 13.10 H RBC 5.40 Hgb 18.1 H Hct 50.5 MCV 93.5 MCH 33.5 MCHC 35.8 RDW Std Deviation 46.4 H RDW Coeff of Susanne 13.5 Plt Count 211 MPV 9.5 Immature Gran % (Auto) 0.4 Neut % (Auto) 66.7 Lymph % (Auto) 23.7 [place] % (Auto) 8.0 Eos % (Auto) 0.9 Baso % (Auto) 0.3 Neut # (Auto) 8.73 H Lymph # (Auto) 3.11 [place] # (Auto) 1.05 H Eos # (Auto) 0.12 Baso # (Auto) 0.04 Immature Gran # (Auto) 0.05 H APTT PTT Ratio Sodium 135 L Potassium 4.1 Chloride 102 Carbon Dioxide 26 Anion Gap 7 BUN 12 Creatinine 1.01 Est Cr Clr Drug Dosing 109.6 Est GFR ( Amer) 95.9 Est GFR (Non-Af Amer) 82.8 BUN/Creatinine Ratio 11.9 Glucose 110 H Estimat Average Glucose Hemoglobin A1c Calcium 9.6 Phosphorus 3.8 Magnesium 2.0 Total Bilirubin 0.8 AST 48 H ALT 41 Alkaline Phosphatase 68 Troponin I High Sens 2457.1 H* Total Protein 7.0 Albumin 4.4 Globulin 2.6 Albumin/Globulin Ratio 1.7 Triglycerides Cholesterol LDL Cholesterol, Calc VLDL Cholesterol, Calc HDL Cholesterol Cholesterol/HDL Ratio Lipase 50 SARS-CoV-2, RNA, NAAT 11/08/21 11/08/21 11/09/21 19:43 21:34 00:04 WBC RBC Hgb Hct MCV MCH MCHC RDW Std Deviation RDW Coeff of Susanne Plt Count MPV Immature Gran % (Auto) Neut % (Auto) Lymph % (Auto) [place] % (Auto) Eos % (Auto) Baso % (Auto) Neut # (Auto) Lymph # (Auto) [place] # (Auto) Eos # (Auto) Baso # (Auto) Immature Gran # (Auto) APTT 27.9 PTT Ratio 1.0 Sodium Potassium Chloride Carbon Dioxide Anion Gap BUN Creatinine Est Cr Clr Drug Dosing Est GFR ( Amer) Est GFR (Non-Af Amer) BUN/Creatinine Ratio Glucose Estimat Average Glucose Hemoglobin A1c Calcium Phosphorus Magnesium Total Bilirubin AST ALT Alkaline Phosphatase Troponin I High Sens 2774.3 H* Total Protein Albumin Globulin Albumin/Globulin Ratio Triglycerides Cholesterol LDL Cholesterol, Calc VLDL Cholesterol, Calc HDL Cholesterol Cholesterol/HDL Ratio Lipase SARS-CoV-2, RNA, NAAT NEGATIVE 11/09/21 11/09/21 11/09/21 04:02 04:02 04:02 WBC 12.94 H RBC 4.94 Hgb 16.5 Hct 46.7 MCV 94.5 MCH 33.4 MCHC 35.3 RDW Std Deviation 46.9 H RDW Coeff of Susanne 13.6 Plt Count 186 MPV 9.5 Immature Gran % (Auto) 0.3 Neut % (Auto) 59.1 Lymph % (Auto) 29.7 [place] % (Auto) 9.0 Eos % (Auto) 1.6 Baso % (Auto) 0.3 Neut # (Auto) 7.64 H Lymph # (Auto) 3.84 H [place] # (Auto) 1.17 H Eos # (Auto) 0.21 Baso # (Auto) 0.04 Immature Gran # (Auto) 0.04 H APTT 34.5 H PTT Ratio 1.3 Sodium 136 Potassium 4.0 Chloride 104 Carbon Dioxide 25 Anion Gap 7 BUN 12 Creatinine 0.95 Est Cr Clr Drug Dosing 117.5 Est GFR ( Amer) 103.3 Est GFR (Non-Af Amer) 89.1 BUN/Creatinine Ratio 12.6 Glucose 97 Estimat Average Glucose Hemoglobin A1c Calcium 8.9 Phosphorus Magnesium 2.0 Total Bilirubin AST ALT Alkaline Phosphatase Troponin I High Sens Total Protein Albumin Globulin Albumin/Globulin Ratio Triglycerides Cholesterol LDL Cholesterol, Calc VLDL Cholesterol, Calc HDL Cholesterol Cholesterol/HDL Ratio Lipase SARS-CoV-2, RNA, NAAT 11/09/21 11/09/21 11/09/21 04:02 05:49 08:05 WBC RBC Hgb Hct MCV MCH MCHC RDW Std Deviation RDW Coeff of Susanne Plt Count MPV Immature Gran % (Auto) Neut % (Auto) Lymph % (Auto) [place] % (Auto) Eos % (Auto) Baso % (Auto) Neut # (Auto) Lymph # (Auto) [place] # (Auto) Eos # (Auto) Baso # (Auto) Immature Gran # (Auto) APTT PTT Ratio Sodium Potassium Chloride Carbon Dioxide Anion Gap BUN Creatinine Est Cr Clr Drug Dosing Est GFR ( Amer) Est GFR (Non-Af Amer) BUN/Creatinine Ratio Glucose Estimat Average Glucose 111 Hemoglobin A1c 5.5 Calcium Phosphorus Magnesium Total Bilirubin AST ALT Alkaline Phosphatase Troponin I High Sens 5851.7 H* D Total Protein Albumin Globulin Albumin/Globulin Ratio Triglycerides 111 Cholesterol 155 LDL Cholesterol, Calc 106 VLDL Cholesterol, Calc 22 HDL Cholesterol 27 Cholesterol/HDL Ratio 5.7 H Lipase SARS-CoV-2, RNA, NAAT Diagnostic Findings Telemetry personally reviewed: Sinus rhythm. No arrhythmia. ECG personally reviewed from 11/09/2021 at 5:55 a.m.: Sinus rhythm 60 beats per minute. Incomplete RBBB. Anterolateral ST/T-wave abnormality. ECG 11/08/2021 at 8:54 p.m.: Sinus bradycardia 58 beats per minute. Incomplete RBBB. Anterolateral ST/T-wave abnormality. ECG 11/08/2021 at 7:36 p.m.: Sinus rhythm 63 beats per minute. Incomplete RBBB. Anterolateral ST/T-wave abnormality. Previous cardiac catheterization report and echo report reviewed as noted above in HPI. Chest x-ray 11/08/2021: No acute process per Radiology. Medications Administered Current Inpatient Medications Acetaminophen (Acetaminophen 325 Mg Tab) 650 mg PO Q4H PRN PRN Reason: Pain or Fever Stop: 12/09/21 00:36 Heparin Sodium/Dextrose (Heparin Sodium/Dextrose) 25,000 units in 500 mls @ 24 mls/hr IV .[id number] [facility]; Protocol Stop: 12/08/21 21:29 Last Titration: 11/09/21 05:21 Dose: 1,200 units/hr, 24 mls/hr Documented by: Nitroglycerin (Nitroglycerin Sl 0.4 Mg/Tab Tab) 0.4 mg SL UD PRN PRN Reason: Chest Pain Stop: 12/08/21 20:40 Last Admin: 11/08/21 21:06 Dose: 0.4 mg Documented by: Nitroglycerin (Nitroglycerin Sl 0.4 Mg/Tab Tab) 0.4 mg SL UD PRN PRN Reason: Chest Pain Stop: 12/09/21 00:36 Ondansetron HCl (Ondansetron Inj 2 Mg/Ml 2 Ml Vial) 4 mg IV Q6H PRN PRN Reason: Nausea Stop: 12/09/21 00:36 Polyethylene Glycol (Polyethylene (Miralax) 17 Gm Pack) 17 gm PO DAILY PRN PRN Reason: Constipation Stop: 12/09/21 00:36 PG Care Time/CCT Total # of Minutes Spent Total Time Spent with Patient: Total time spent is greater than 50% in coordination of care (as documented) at patient's floor/unit and/or counseling patient: Coding Level of Care Code 48119 Initial Inpt Care Lvl 3 Diagnoses NSTEMI (non-ST elevated myocardial infarction) I21.4 CAD (coronary artery disease) I25.10 Tobacco abuse Z72.0 Dyslipidemia E78.5 S/P coronary artery stent placement Z95.5
[2021-11-09 09:30] LABS: Chol HDL Ratio 5.7 (0-5)
[2021-11-09] MEDS: ASPIRIN 81 MG ECTAB PO SCH (10:17)
--- NOTE | 2021-11-09 10:22 | Pre Anesthesia Assessment ---
Date of Service November 09, 2021 Pre Sedation Assessment Vital Signs Temp Pulse Pulse Resp BP BP BP 11/09/21 08:14 36.5 C 62 18 99/65 L 11/09/21 03:41 37.0 C 67 18 94/62 L 11/09/21 00:51 36.7 C 57 L 20 123/77 11/09/21 00:50 64 11/08/21 23:00 61 15 101/65 11/08/21 21:22 71 19 113/74 11/08/21 19:49 11/08/21 19:27 36.4 C L 73 20 116/77 Pulse Ox 11/09/21 08:14 94 11/09/21 03:41 96 11/09/21 00:51 97 11/09/21 00:50 11/08/21 23:00 95 11/08/21 21:22 95 11/08/21 19:49 96 11/08/21 19:27 96 Cardiovascular RRR, no murmur, no edema Respiratory normal respiratory effort, lungs clear to auscultation Pre-Sedation Airway Assessment Smoking Status: Current every day smoker Mallampati Class: III ASA: ASA3 NPO Status Date of Last Intake of Fluids: 11/08/21 Time of Last Intake of Fluids: 04:00 Date of Last Intake of Solid Food: 11/08/21 Time of Last Intake of Solid Foods: 04:00 Procedure Planning Contraindications for Sedation: none Current Medications Reviewed: Yes Notes The planned sedation has been discussed with the patient. Informed Consent was obtained. I have identified the patient, determined the appropriateness of sedation and have assessed the patient immediately prior to the procedure. All medicine(s) and interventions are by my order.
[2021-11-09 12:22] LABS: Partial Thromboplastin Ratio 1.5; Partial Thromboplastin Time 41.8 Seconds (21.0-31.0)
[2021-11-09] MEDS ORDERED: HEPARIN (PORCINE) 1000 UNIT/ML 10 ML (CATH LAB USE ONLY) ONE (12:24)
[2021-11-09] MEDS ORDERED: niCARdipine HCL INJ 2.5 MG/ML 10 ML AMP ONE (12:24)
[2021-11-09] MEDS ORDERED: MIDAZOLAM HCL 1 MG/ML 2ML VIAL ONE (12:24)
[2021-11-09] MEDS ORDERED: fentaNYL citrate 100 MCG/2 ML VIAL ONE (12:24)
[2021-11-09] MEDS ORDERED: NITROGLYCERIN/D5W 100MCG/ML 20ML SYR ONE (12:25)
[2021-11-09] MEDS ORDERED: ATROPINE SULFATE 0.1 MG/ML 10ML SYR IV ONE (13:47)
--- NOTE | 2021-11-09 13:53 | Cardiac Catheterization ---
[facility] [place] Data: [employer] Potato Cutter Cardiac Status Clinical evaluation leading to the procedure CAD Presenation: Non STEMI Anginal Classification: CCS IV Heart Failure: No Cardiogenic Shock within 24 Hours: No Cardiac Arrest within 24 Hours: No Imaging Studies Past 6 Months: Yes Stress Studies Past 6 Months: No Coronary Anatomy Dominant: Right Diagnostic Physicians Name: Daniel Damian MD Status: Elective Closure Device Percutaneous Entry Location: Radial Closure Device: Radial Band Recommendations: PCI without planned CABG Cardiac Cath Procedure Full Procedure Date November 09, 2021 Pre-Procedure Diagnosis Pre-Procedure Diagnosis: Non STEMI AUC Score AUC Score: 9 Post-Procedure Diagnosis Post-Procedure Diagnosis: Severe CAD and Elevated Intracardiac Pressures Procedure(s) Performed Procedure(s) Performed: Coronary Angiography and Left Heart Cath Patient Care Specialist Daniel Damian MD Sports Equipment Repairer(s) Showers Estimated Blood Loss Estimated Blood Loss: < 25 ml Medication(s) Medication(s): Fentanyl, Heparin, Lidocaine 1%, Nicardipine and Versed Summary of Findings Procedures: 1. Coronary angiography 2. Left heart catheterization 3. Moderate sedation Indication: 56-year-old gentleman with a history significant for RCA STEMI s/p RCA PCI x2 on 11/20/2015, dyslipidemia, and tobacco abuse. He was admitted on 11/08/2021 with NSTEMI and referred for cardiac catheterization. Coronary angiography: 1. Left main: No significant CAD. 2. Left anterior descending: Large caliber vessel that extended to the apex. Ostial/proximal LAD 30%. Late proximal LAD 30%. Mid LAD 20% just distal to ectatic segment. Large D1 originates from the mid LAD, involving the ectatic area. Ostial D1 70 to 80%. Mid D1 30 to 40%. MARISELA-3 flow. Mid to distal LAD myocardial bridging. 3. Circumflex: Early mid circumflex 60 to 70%. Large caliber high OM1 with proximal 20%. Very small caliber OM 2. 4. Right coronary artery: Large and dominant vessel. Proximal RCA 50 to 70% at proximal stent margin. Proximal to mid RCA stents with diffuse 30 to 40% in- stent restenosis. Mid RCA 100%, distal to previous stent. MARISELA 0 flow. Left to right collaterals filled PDA and PL branches. Left heart catheterization: 1. Left ventriculography was not performed. 2. No significant aortic stenosis. 3. Elevated LVEDP; 25 mmHg. Moderate sedation: 1. Sedation start time: 1:05 PM 2. Sedation end time: 1:16 PM Impression: 1. Occluded mid RCA, likely acute and culprit vessel. 2. Left to right collaterals. 3. Mild to moderate in-stent restenosis of proximal and mid RCA stents. 4. Moderate to severe CAD involving circumflex with severe ostial D1 stenosis (similar to previous D1 images in 2016). 5. Otherwise, nonobstructive CAD. 6. Elevated left-sided filling pressure. 7. No aortic stenosis. Plan: 1. Requested Dr. Mercado of interventional cardiology to review images and attempt PCI of the RCA. 2. Risk factor modification. 3. Medication compliance. 4. Smoking cessation. 5. Cardiac Rehab. Hemodynamics Rest Ao:: 108/61 Final Ao: 110/61 LV: 102//25 Recommendations Recommendations: PCI without planned CABG Specimens Specimens: None Radiation Exposure (mGy) 870 mGy. Fluoro time 3.6 min. Contrast (mls) 50 ml Procedural Complication(s) None Disposition Remains in organic lab worker for PCI attempt I attest to the content of the Intraoperative Record and any orders documented therein. Any exceptions are noted below. [facility] Card Cath Procedure Codes Cardiac Catheterization Procedure 1: Cardiovascular Cath Procedures: 86570 Coronaries and LHC (+/-LV) Moderate Sedation Procedure 1: Sedation/Anesthesia: 07804 Mod Sedation by the same physician;Init15 Min Child Age 5 & Up PG Care Time/CCT Total # of Minutes Spent Total Time Spent with Patient: Total time spent is greater than 50% in coordination of care (as documented) at patient's floor/unit and/or counseling patient:
[2021-11-09] MEDS ORDERED: CLOPIDOGREL BISULFATE 300 MG TAB ONE (14:12)
--- NOTE | 2021-11-09 15:24 | Billing Data ---
Date of Service November 09, 2021 Coding Level of Care Code 80850 Subseq Hosp Care Lvl 3
--- NOTE | 2021-11-09 15:32 | Medical Student Progress Note ---
Date of Service November 09, 2021 Assessment & Plan (1) NSTEMI (non-ST elevated myocardial infarction): Plan: 56 y/o with a hx of CAD s/p OH in 2016 with stent placement and 40-year hx of tobacco use, who presented to the ED on 11/08 with chest pain. Pt is currently being medically managed for an NSTEMI and is currently not experiencing chest pain -Elevated troponin greater than [address] depression -Place on heparin drip on admission -Cardiology consulted: -taken to [facility] today, occluded RCA noted: undergoing PCI -will start a low-dose beta-rc if blood pressure improves and heart rate allows -recommended low-dose TESHA-inhibitor if blood pressure allows -ECHO pending -pt will likely be on DAPT for at least one year after stent placement (aspirin, Plavix) Vascular Risk Factors -Dyslipidemia -Triglycerides: 111 Cholesterol: 155 LDL: 106 HDL: 27 -Pt started on 40mg atorvastatin: this will likely suffice to bring LDL down to goal (<70) but can titrate up to 80mg if necessary -Dietary modifications discussed: lean meats, cutting down on soda, reduction of simple carbohydrates -Discussed the importance of routine exercise, consider referral to cardiac rehab Tobacco use: -Pt counseled on smoking cessation -Pt would be a candidate to have low dose CT for lung cancer screening -A1C checked and returned at 5.5: in nondiabetic range Diet: Heart healthy diet DVT ppx: Start lovenox tomorrow morning (11/10) Code: FULL CODE Disp: PCU: needs PCP upon discharge Admission and Anticipated Discharge Date Admission Date: November 08, 2021 Subjective 56 y/o male with a hx of CAD s/p OH in 2015 with stent placement, who presented to the ED yesterday (11/08) with chest pain that radiated to his shoulder. When pt presented to ED he had elevated troponin at 2457.1 and an EKG showed ST depression. Pt was given ASA and nitroglycerin in the ED and was started on heparin. Today the patient states that he has minimal left arm pain that he rates a 2/10 but is not experiencing any chest pain, shortness of breath, lightheadedness, or dizziness. Pt is a tobacco user and smokes about one pack per day. He has a family hx of a maternal grandmother who at 55 from an [place]. Review of Systems Review of Systems: See HPI Physical Exam Constitutional: Well developed male sitting comfortably in bed in no apparent distres Respiratory: Expiratory wheezes Cardiovascular: Regular rate and rhythm, no murmurs, rubs, or gallops Results & Data ([facility]) Vital Signs (Past 12 Hours) Vital Signs Temp Pulse Resp BP BP Pulse Ox 11/09/21 14:40 36.5 C 65 19 108/73 96 11/09/21 11:49 36.5 C 60 19 106/74 96 11/09/21 08:14 36.5 C 62 18 99/65 L 94 11/09/21 03:41 37.0 C 67 18 94/62 L 96 Laboratory Results Laboratory Results - last 24 hr 11/08/21 11/08/21 11/08/21 19:43 19:43 19:43 WBC 13.10 H RBC 5.40 Hgb 18.1 H Hct 50.5 MCV 93.5 MCH 33.5 MCHC 35.8 RDW Std Deviation 46.4 H RDW Coeff of Susanne 13.5 Plt Count 211 MPV 9.5 Immature Gran % (Auto) 0.4 Neut % (Auto) 66.7 Lymph % (Auto) 23.7 Hendricks % (Auto) 8.0 Eos % (Auto) 0.9 Baso % (Auto) 0.3 Neut # (Auto) 8.73 H Lymph # (Auto) 3.11 Hendricks # (Auto) 1.05 H Eos # (Auto) 0.12 Baso # (Auto) 0.04 Immature Gran # (Auto) 0.05 H APTT PTT Ratio Sodium 135 L Potassium 4.1 Chloride 102 Carbon Dioxide 26 Anion Gap 7 BUN 12 Creatinine 1.01 Est Cr Clr Drug Dosing 109.6 Est GFR ( Amer) 95.9 Est GFR (Non-Af Amer) 82.8 BUN/Creatinine Ratio 11.9 Glucose 110 H Estimat Average Glucose Hemoglobin A1c Calcium 9.6 Phosphorus 3.8 Magnesium 2.0 Total Bilirubin 0.8 AST 48 H ALT 41 Alkaline Phosphatase 68 Troponin I High Sens 2457.1 H* Total Protein 7.0 Albumin 4.4 Globulin 2.6 Albumin/Globulin Ratio 1.7 Triglycerides Cholesterol LDL Cholesterol, Calc VLDL Cholesterol, Calc HDL Cholesterol Cholesterol/HDL Ratio Lipase 50 SARS-CoV-2, RNA, NAAT 11/08/21 11/08/2111/09/22 19:43 21:34 00:04 WBC RBC Hgb Hct MCV MCH MCHC RDW Std Deviation RDW Coeff of Susanne Plt Count MPV Immature Gran % (Auto) Neut % (Auto) Lymph % (Auto) Hendricks % (Auto) Eos % (Auto) Baso % (Auto) Neut # (Auto) Lymph # (Auto) Hendricks # (Auto) Eos # (Auto) Baso # (Auto) Immature Gran # (Auto) APTT 27.9 PTT Ratio 1.0 Sodium Potassium Chloride Carbon Dioxide Anion Gap BUN Creatinine Est Cr Clr Drug Dosing Est GFR ( Amer) Est GFR (Non-Af Amer) BUN/Creatinine Ratio Glucose Estimat Average Glucose Hemoglobin A1c Calcium Phosphorus Magnesium Total Bilirubin AST ALT Alkaline Phosphatase Troponin I High Sens 2774.3 H* Total Protein Albumin Globulin Albumin/Globulin Ratio Triglycerides Cholesterol LDL Cholesterol, Calc VLDL Cholesterol, Calc HDL Cholesterol Cholesterol/HDL Ratio Lipase SARS-CoV-2, RNA, NAAT NEGATIVE 11/09/21 11/09/21 11/09/21 04:02 04:02 04:02 WBC 12.94 H RBC 4.94 Hgb 16.5 Hct 46.7 MCV 94.5 MCH 33.4 MCHC 35.3 RDW Std Deviation 46.9 H RDW Coeff of Susanne 13.6 Plt Count 186 MPV 9.5 Immature Gran % (Auto) 0.3 Neut % (Auto) 59.1 Lymph % (Auto) 29.7 Hendricks % (Auto) 9.0 Eos % (Auto) 1.6 Baso % (Auto) 0.3 Neut # (Auto) 7.64 H Lymph # (Auto) 3.84 H Hendricks # (Auto) 1.17 H Eos # (Auto) 0.21 Baso # (Auto) 0.04 Immature Gran # (Auto) 0.04 H APTT 34.5 H PTT Ratio 1.3 Sodium 136 Potassium 4.0 Chloride 104 Carbon Dioxide 25 Anion Gap 7 BUN 12 Creatinine 0.95 Est Cr Clr Drug Dosing 117.5 Est GFR ( Amer) 103.3 Est GFR (Non-Af Amer) 89.1 BUN/Creatinine Ratio 12.6 Glucose 97 Estimat Average Glucose Hemoglobin A1c Calcium 8.9 Phosphorus Magnesium 2.0 Total Bilirubin AST ALT Alkaline Phosphatase Troponin I High Sens Total Protein Albumin Globulin Albumin/Globulin Ratio Triglycerides Cholesterol LDL Cholesterol, Calc VLDL Cholesterol, Calc HDL Cholesterol Cholesterol/HDL Ratio Lipase SARS-CoV-2, RNA, NAAT 11/09/21 11/09/21 11/09/21 04:02 05:49 08:05 WBC RBC Hgb Hct MCV MCH MCHC RDW Std Deviation RDW Coeff of Susanne Plt Count MPV Immature Gran % (Auto) Neut % (Auto) Lymph % (Auto) Hendricks % (Auto) Eos % (Auto) Baso % (Auto) Neut # (Auto) Lymph # (Auto) Hendricks # (Auto) Eos # (Auto) Baso # (Auto) Immature Gran # (Auto) APTT PTT Ratio Sodium Potassium Chloride Carbon Dioxide Anion Gap BUN Creatinine Est Cr Clr Drug Dosing Est GFR ( Amer) Est GFR (Non-Af Amer) BUN/Creatinine Ratio Glucose Estimat Average Glucose 111 Hemoglobin A1c 5.5 Calcium Phosphorus Magnesium Total Bilirubin AST ALT Alkaline Phosphatase Troponin I High Sens 5851.7 H* D Total Protein Albumin Globulin Albumin/Globulin Ratio Triglycerides 111 Cholesterol 155 LDL Cholesterol, Calc 106 VLDL Cholesterol, Calc 22 HDL Cholesterol 27 Cholesterol/HDL Ratio 5.7 H Lipase SARS-CoV-2, RNA, NAAT 11/09/21 11:37 WBC RBC Hgb Hct MCV MCH MCHC RDW Std Deviation RDW Coeff of Susanne Plt Count MPV Immature Gran % (Auto) Neut % (Auto) Lymph % (Auto) Hendricks % (Auto) Eos % (Auto) Baso % (Auto) Neut # (Auto) Lymph # (Auto) Hendricks # (Auto) Eos # (Auto) Baso # (Auto) Immature Gran # (Auto) APTT 41.8 H PTT Ratio 1.5 Sodium Potassium Chloride Carbon Dioxide Anion Gap BUN Creatinine Est Cr Clr Drug Dosing Est GFR ( Amer) Est GFR (Non-Af Amer) BUN/Creatinine Ratio Glucose Estimat Average Glucose Hemoglobin A1c Calcium Phosphorus Magnesium Total Bilirubin AST ALT Alkaline Phosphatase Troponin I High Sens Total Protein Albumin Globulin Albumin/Globulin Ratio Triglycerides Cholesterol LDL Cholesterol, Calc VLDL Cholesterol, Calc HDL Cholesterol Cholesterol/HDL Ratio Lipase SARS-CoV-2, RNA, NAAT
--- NOTE | 2021-11-09 15:52 | XCELERA ---
[id number]
--- NOTE | 2021-11-09 18:04 | Post Anesthesia Assessment ---
Date of Service November 09, 2021 Post Sedation Assessment Vital Signs Temp Pulse Pulse Resp BP BP BP 11/09/21 16:00 98.2 F 64 14 123/79 11/09/21 15:45 98.4 F 62 14 117/73 11/09/21 15:35 98.1 F 64 16 92/67 L 11/09/21 14:40 97.7 F 65 19 108/73 11/09/21 11:49 97.7 F 60 19 106/74 11/09/21 08:14 97.7 F 62 18 99/65 L 11/09/21 03:41 98.6 F 67 18 94/62 L 11/09/21 00:51 98.1 F 57 L 20 123/77 11/09/21 00:50 64 11/08/21 23:00 61 15 101/65 11/08/21 21:22 71 19 113/74 11/08/21 19:49 11/08/21 19:27 97.5 F L 73 20 116/77 Pulse Ox 11/09/21 16:00 95 11/09/21 15:45 95 11/09/21 15:35 95 11/09/21 14:40 96 11/09/21 11:49 96 11/09/21 08:14 94 11/09/21 03:41 96 11/09/21 00:51 97 11/09/21 00:50 11/08/21 23:00 95 11/08/21 21:22 95 11/08/21 19:49 96 11/08/21 19:27 96 Recovery Score Activity: Moves 4 extremities Respiration: Deep Breath/Cough Circulation: +/-20% PreAnes Value Consciousness: Fully Awake Oxygen Saturation: > 92% On Room Air Post Anesthesia Score: 10 Discharge Sedation Level of Care: Fast Track Phase II Post Sedation Plan On clinical assessment, the patient appears to have tolerated the sedation without complications. Patient is recovering as anticipated. Patient will continue to be monitored by nursing and may be discharged when sedation discharge criteria are met per below protocol. Upon Completions of procedure up to 15 minutes continue every 5 minute vital signs and the P.A.R. score; then discharge to a Phase I or Fast Track to Phase II per the following guidelines: * Discharge Patient to appropriate Phase II area if PAR is 8 or greater or return to pre- procedure baseline. The post - procedure orders will be as directed. * If PAR score is less than 8 or not return to pre-procedure baseline then patient will follow Phase I monitoring till PAR is reached for Phase II. The Phase I may be done in procedure room or may call to secure a Phase I area. * If naloxone or flumazenil are used for reversal, hold in Phase I for continued monitoring from when last reversal dose was given for a minimum of 60 minutes or longer pending the nurse and/or physician discretion of patient condition before discharge to Phase II. Please call the Sedation Physician to re-evaluate and complete post-note for discharge to Phase II area. Do NOT discharge from procedure sedation or Phase 1 until post- sedation evaluation note is complete by procedure /sedation MD Sedation Discharge Instructions to be given to the patient at discharge to home.
--- NOTE | 2021-11-09 18:16 | Cardiac Catheterization ---
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 Cardiac Status Clinical evaluation leading to the procedure CAD Presenation: Non STEMI Anginal Classification: CCS IV Diagnostic Physicians Name: Torito Mercado MD Closure Device Recommendations: PCI without planned CABG Cardiac Cath Procedure Full Procedure Date November 09, 2021 Pre-Procedure Diagnosis Pre-Procedure Diagnosis: Non STEMI AUC Score AUC Score: 8 Post-Procedure Diagnosis Post-Procedure Diagnosis: Severe CAD and Successful PCI Procedure(s) Performed Procedure(s) Performed: Coronary Angiography and Drug Eluting Stent Tail Puller Torito Mercado MD Pipe Welder(s) Showers Estimated Blood Loss Estimated Blood Loss: < 25 ml Medication(s) Medication(s): Clopidogrel, Fentanyl, Heparin, Lidocaine 1%, Nicardipine, Nitroglycerin and Versed Summary of Findings Indication: High risk NSTEMI Access: 6 Fr right radial artery Catheters: AR-1 guide Findings: For full details of patient's coronary angiography please see cath report dictated by Dr. Damian. Briefly, patient found to have an acute on chronic distal RCA occlusion with [id number] collaterals. Decision to proceed with PCI. -- PCI -- Antithrombotic therapy: Heparin, clopidogrel Procedure: RCA cannulated with AR-1 guide Pre-procedure flow MARISELA 0 [place] Fitter 50 wire passed across lesion into distal vessel Distal RCA lesion predilated with 2.5 compliant balloon Dilated distal RCA lesion stented with 3.0 x 38 mm Ziyad drug-eluting stent Stent post-dilated with 3.5 noncompliant balloon IC vasodilators administered for spasm Noted to have residual moderate to severe disease just proximal to prior stents. Second GARFIELD (3.0 x 8 mm [place]) placed to proximal RCA overlapping proximal aspect of prior stent Stent postdilated with stent balloon New distal stent appeared to be underexpanded in ectatic areas of distal RCA and redilated with 4.0 NC balloon. Post procedure MARISELA 3 flow, stents well expanded with minimal residual stenosis and no apparent cardiac complications. Arterial Closure: TR band Summary: 1. Successful PCI of distal RCA acute on chronic occlusion with long drug- eluting stent (3.0 x 38 mm [place]; postdilated with 3.5 and 4.0 NC balloon). 2. Successful PCI of proximal RCA stenosis with single GARFIELD (3.0 x 8 mm Ziyad) overlapping proximal aspect of prior stent. Recommendations: To PCU for continued monitoring Loaded with clopidogrel 600 mg in [employer] Professor Continue dual-antiplatelet therapy for at least 1 year, likely extended therapy in the setting of overlapping stents and ectatic distal RCA. Continue statin, and ASCVD risk factor modification Consult cardiac Rehab Hemodynamics Rest Ao:: Final Ao: LV: --- Recommendations Recommendations: PCI without planned CABG Specimens Specimens: None Radiation Exposure (mGy) 3291 Contrast (mls) 120 Anesthesia Moderate 1223-3452 Procedural Complication(s) None Disposition PCU I attest to the content of the Intraoperative Record and any orders documented therein. Any exceptions are noted below. [facility] Card Cath Procedure Codes Moderate Sedation Procedure 1: Sedation/Anesthesia: 59272 Mod Sedation by the same physician; Ea Add [id number] Minutes Stenting Procedure 1: Cardiovascular Stent Procedures: 18942 Perc transluminal revascularization of acute sub/total occl, aMI PG Care Time/CCT Total # of Minutes Spent Total Time Spent with Patient: Total time spent is greater than 50% in coordination of care (as documented) at patient's floor/unit and/or counseling patient:
--- NOTE | 2021-11-09 20:11 | Billing Data ---
Date of Service November 09, 2021 Coding Level of Care Code 96307 Initial Inpt Care Lvl 2
[2021-11-09] MEDS ORDERED: ATORVASTATIN 40 MG TAB PO SCH (21:00)
[2021-11-10 05:57] LABS: Hematocrit (blood only) 47.6 % (42-52); Hemoglobin 16.6 g/dL (14.0-18.0); Mean Corpuscular Hemoglobin 33.1 pg (25-34); Mean Corpuscular Hgb Conc 34.9 g/dL (32-36); Mean Corpuscular Volume 94.8 fL (80-100); Mean Platelet Volume 9.6 fL (7.4-10.4); Platelet Count 173 K/uL (130-400); RDW Coefficient of Variation 13.4 % (11.5-14.5); Red Blood Count 5.02 M/uL (4.7-6.1); White Blood Count 9.24 K/uL (4.8-10.8)
[2021-11-10 06:30] LABS: Troponin I High Sensitivity 5098.1 pg/ml (0-20)
[2021-11-10 06:48] LABS: BUN Creatinine Ratio 15.4 (10-20); Creatinine Clr Calc Pharmacy 106.9 ml/min; Est GFR (African American) 92.6 ml/min; Est GFR (Non-African American) 79.9 ml/min; Potassium 3.8 mmol/L (3.5-5.1)
[2021-11-10] MEDS ORDERED: POTASSIUM CHLORIDE 20MEQ/15ML 473ML PO ONE (07:45)
[2021-11-10] MEDS: ASPIRIN 81 MG ECTAB PO SCH (08:20)
[2021-11-10] MEDS ORDERED: ASPIRIN 81 MG ECTAB PO SCH (09:00)
--- NOTE | 2021-11-10 10:42 | Cardiology Progress Note ---
Date of Service November 10, 2021 Assessment & Plan (1) NSTEMI (non-ST elevated myocardial infarction): (2) CAD (coronary artery disease): (3) Tobacco abuse: (4) Dyslipidemia: (5) S/P coronary artery stent placement: Plan: ASSESSMENT/PLAN: 1. NSTEMI: Was found to have occluded RCA and has undergone PCI. Has been asymptomatic since. Recommend dual anti-platelet therapy, including aspirin 81 mg daily indefinitely and Plavix 75 mg daily for at least 1 year, but likely extended. High-intensity statin therapy. Low-dose beta-rc if blood pressure allows. Cardiac rehab. 2. CAD s/p RCA PCI: Dual anti-platelet therapy as above. Low-dose beta-rc if blood pressure allows such as metoprolol succinate 25 mg or 12.5 mg once daily. High-intensity statin therapy. Ideally would recommend TESHA-inhibitor if blood pressure allows as well in the future. Currently hypotensive and therefore TESHA-inhibitor not initiated 3. Dyslipidemia: High-intensity statin therapy. 4. Tobacco abuse: Smoking cessation once again discussed. 5. Disposition: Can be discharged later today after 48 hours from ME onset. He would like to follow-up with Dr. Mercado in the cardiology office. Cardiology office was asked to help set this appointment up for 1 week. Admission and Anticipated Discharge Date Admission Date: November 08, 2021 Subjective He denies any further chest pain, arm pain, shortness of breath, syncope, near- syncope, palpitations, edema, or bleeding. He is looking forward to being discharged. Review of systems: As above. He was alone in his hospital room. Physical Exam Physical Exam: Gen.: No acute distress. Alert and oriented. HEENT: Anicteric sclera. Neck: No JVD. Cardiac: PMI was nonpalpable. No ventricular heave. Regular. Normal S1-S2. No murmurs, rubs, or gallops. Pulmonary: Clear to auscultation bilaterally without wheezes, rales, or rhonchi. Abdomen: Soft, nontender, nondistended, with normoactive bowel sounds. No bruits noted. Extremities: 2+ radial pulses bilaterally. Right radial cath site was clean, dry, and intact without erythema or discharge. No hematoma. 2+ posterior tibialis pulses bilaterally. No edema or cyanosis. Psychiatric: Affect appears appropriate. Results & Data ([facility]) Vital Signs (Past 12 Hours) Vital Signs Temp Pulse Pulse Resp BP Pulse Ox 11/10/21 07:58 36.8 C 72 14 95/70 L 96 11/10/21 07:41 61 11/10/21 03:07 37.0 C 69 18 109/62 95 11/09/21 23:00 37.2 C 75 18 108/74 95 Laboratory Results Laboratory Results - last 24 hr 11/09/21 11/09/21 11/09/21 11:37 13:08 13:47 WBC RBC Hgb Hct MCV MCH MCHC RDW Std Deviation RDW Coeff of Susanne Plt Count MPV APTT 41.8 H PTT Ratio 1.5 Activ Coag Time Kaolin 148 H 285 H Sodium Potassium Chloride Carbon Dioxide Anion Gap BUN Creatinine Est Cr Clr Drug Dosing Est GFR ( Amer) Est GFR (Non-Af Amer) BUN/Creatinine Ratio Glucose Calcium Magnesium Troponin I High Sens 11/09/21 11/09/21 11/10/21 15:22 19:39 05:34 WBC RBC Hgb Hct MCV MCH MCHC RDW Std Deviation RDW Coeff of Susanne Plt Count MPV APTT PTT Ratio Activ Coag Time Kaolin Sodium Potassium Chloride Carbon Dioxide Anion Gap BUN Creatinine Est Cr Clr Drug Dosing Est GFR ( Amer) Est GFR (Non-Af Amer) BUN/Creatinine Ratio Glucose Calcium Magnesium 2.0 Troponin I High Sens 8297.5 H* D 8804.7 H* 11/10/21 11/10/21 05:34 05:34 WBC 9.24 RBC 5.02 Hgb 16.6 Hct 47.6 MCV 94.8 MCH 33.1 MCHC 34.9 RDW Std Deviation 46.0 RDW Coeff of Susanne 13.4 Plt Count 173 MPV 9.6 APTT PTT Ratio Activ Coag Time Kaolin Sodium 136 Potassium 3.8 Chloride 105 Carbon Dioxide 22 Anion Gap 9 BUN 16 Creatinine 1.04 Est Cr Clr Drug Dosing 106.9 Est GFR ( Amer) 92.6 Est GFR (Non-Af Amer) 79.9 BUN/Creatinine Ratio 15.4 Glucose 87 Calcium 9.0 Magnesium Troponin I High Sens 5098.1 H* D Diagnostic Findings Telemetry personally reviewed: Sinus rhythm. No arrhythmia. Cardiac Cath 11/09/21: Coronary angiography: 1. Left main: No significant CAD. 2. Left anterior descending: Large caliber vessel that extended to the apex. Ostial/proximal LAD 30%. Late proximal LAD 30%. Mid LAD 20% just distal to ectatic segment. Large D1 originates from the mid LAD, involving the ectatic area. Ostial D1 70 to 80%. Mid D1 30 to 40%. MARISELA-3 flow. Mid to distal LAD myocardial bridging. 3. Circumflex: Early mid circumflex 60 to 70%. Large caliber high OM1 with proximal 20%. Very small caliber OM 2. 4. Right coronary artery: Large and dominant vessel. Proximal RCA 50 to 70% at proximal stent margin. Proximal to mid RCA stents with diffuse 30 to 40% in- stent restenosis. Mid RCA 100%, distal to previous stent. MARISELA 0 flow. Left to right collaterals filled PDA and PL branches. PCI Summary: 1. Successful PCI of distal RCA acute on chronic occlusion with long drug- eluting stent (3.0 x 38 mm [place]; postdilated with 3.5 and 4.0 NC balloon). 2. Successful PCI of proximal RCA stenosis with single GARFIELD (3.0 x 8 mm [place]) overlapping proximal aspect of prior stent. Echo 11/09/21: LVEF 50-55%. Mild hypokinesis of inferior wall. Severe hypokinesis of inferolateral wall. Mildly reduced RV systolic function. Mild AI. Medications Administered Current Inpatient Medications Acetaminophen (Acetaminophen 325 Mg Tab) 650 mg PO Q4H PRN PRN Reason: Pain or Fever Stop: 12/09/21 00:36 Aspirin (Aspirin 81 Mg Ectab) [facility] Stop: 12/09/21 09:44 Last Admin: 11/10/21 08:20 Dose: 81 mg Documented by: Atorvastatin Calcium (Atorvastatin 40 Mg Tab) 40 mg PO HS [facility] Stop: 12/09/21 20:59 Last Admin: 11/09/21 20:56 Dose: 40 mg Documented by: Nitroglycerin (Nitroglycerin Sl 0.4 Mg/Tab Tab) 0.4 mg SL UD PRN PRN Reason: Chest Pain Stop: 12/08/21 20:40 Last Admin: 11/08/21 21:06 Dose: 0.4 mg Documented by: Nitroglycerin (Nitroglycerin Sl 0.4 Mg/Tab Tab) 0.4 mg SL UD PRN PRN Reason: Chest Pain Stop: 12/09/21 00:36 Ondansetron HCl (Ondansetron Inj 2 Mg/Ml 2 Ml Vial) 4 mg IV Q6H PRN PRN Reason: Nausea Stop: 12/09/21 00:36 Polyethylene Glycol (Polyethylene (Miralax) 17 Gm Pack) 17 gm PO DAILY PRN PRN Reason: Constipation Stop: 12/09/21 00:36 PG Care Time/CCT Total # of Minutes Spent Total Time Spent with Patient: Total time spent is greater than 50% in coordination of care (as documented) at patient's floor/unit and/or counseling patient: Coding Level of Care Code 45248 Subseq Hosp Care Lvl 3 Diagnoses NSTEMI (non-ST elevated myocardial infarction) I21.4 CAD (coronary artery disease) I25.10 Tobacco abuse Z72.0 Dyslipidemia E78.5 S/P coronary artery stent placement Z95.5
[2021-11-10] MEDS ORDERED: METOPROLOL SUCC 25MG EXT REL TAB PO SCH (11:00)
[2021-11-10] MEDS ORDERED: CLOPIDOGREL BISULFATE 75 MG TAB PO STA (13:18)
--- NOTE | 2021-11-10 13:29 | Discharge Summary ---
Date of Service November 10, 2021 Admission HPI Per Admitting Provider Patient is a 56 yo male with PMHx of CAD with DC 11/2015 s/p PCI being admitted for NSTEMI. Patient states that he initially began to have left sided chest pressure and "heart burn" sensation around 0400 this morning. He took a nitroglycerin which relieved the pain. Patient slept throughout the day and did not have any PO intake. He woke from his nap around 1730 with similar left sided chest pain, nausea, and vomiting x1. Pain has been constant since that time. Pain initially 8/10 and now slightly improved to a 5/10. Patient notes that this feels similar to his hx of DC as well as his hx of GERD. He takes ASA 81mg qAM but is otherwise on no other home medications. Patient is a tobacco user and smokes about 1ppd. No alcohol use. Patient denies recent illness and states that prior to this morning he was in his usual state of health. Patient denies fever, chills, congestion, sinus pain, SOB, cough, abd pain, weakness, fatigue, numbness, tingling, urinary symptoms (e.g. dysuria or hematuria), or any other symptoms. In the ED, patient was found to have a high sensitivity troponin of 2457. WBC 13.1. H&H 18.1 & 50.5 EKG shows incomplete RBBB and T wave changes in the lateral leads which is new compared to EKG from 11/2015. COVID negative. Admission Exam Per Admitting Provider GENERAL: No acute distress. Well developed and well nourished. A/O x3. EYES: PERRLA. EOMI. Anicteric sclerae. HENT: Edentulous. Moist mucous membranes. No pharyngeal erythema or exudates. RESPIRATORY: Clear to auscultation bilaterally. No wheezing, rales, or rhonchi. CARDIOVASCULAR: Regular rate and rhythm. No murmurs. ABDOMEN: Soft, non-tender and non-distended. Normal bowel sounds. EXTREMITIES: No edema. Non-tender. 5/5 tree marker strength bilaterally. 5/5 strength in BUE and BLE. SKIN: Warm, dry. No rashes or lesions. NEUROLOGIC: No focal neurological deficits. CN II-XII grossly intact. PSYCHIATRIC: Cooperative. Appropriate mood and affect. Principal Diagnosis NSTEMI Discharge Exam General: Grossly A&O. NAD. Cooperative. HEENT: Atraumatic, normocephalic. EOMI Pulm: CTAB. -wheezes, -rales, -rhonchi. Symmetrical chest rise. No respiratory distress. Cardiac: RRR, -mrg. No LE edema. Abdominal: Nontender, nondistended, soft. Integ: No bleeding noted at wrists. Discharge Data Allergies Allergy/AdvReac Type Severity Reaction Status Date / Time Cephalosporins Allergy Severe HIVES Unverified 11/08/21 21:54 Consultations 11/08/21 21:38 ED Decision to Admit Stat 11/09/21 00:37 Consult Cardiology Routine Procedures Performed Operation Date: 11/09/21 13:00 Actual Procedures p Cineradiography w/Routine Exam - Daniel Damian MD s Cath, Left with Cors and Vent - Daniel Damian MD p Drug Eluting Stent SGl Vessel - Gallito Mercado MD Ordered Studies Cardiac Enzymes 11/09/21 11/10/21 Range/Units 19:39 05:34 Troponin I High Sens 8804.7 H* 5098.1 H* D (0-20) pg/ml CBC 11/10/21 Range/Units 05:34 WBC 9.24 (4.8-10.8) K/uL RBC 5.02 (4.7-6.1) M/uL Hgb 16.6 (14.0-18.0) g/dL Hct 47.6 (42-52) % Plt Count 173 (130-400) K/uL Comprehensive Metabolic Panel 11/10/21 Range/Units 05:34 Sodium 136 (136-145) mmol/L Potassium 3.8 (3.5-5.1) mmol/L Chloride 105 (98-107) mmol/L Carbon Dioxide 22 (21-32) mmol/L BUN 16 (6-23) mg/dl Creatinine 1.04 (0.6-1.4) mg/dl Glucose 87 (70-99(Fasting)) mg/dl Calcium 9.0 (8.5-10.1) mg/dl Intake and Output 11/10/21 11/10/21 11/10/21 06:59 14:59 22:59 Intake Total 300 / 300 Output Total 400 / 801 500 / 500 Balance -400 / 652.267 -200 / -200 Intake: Oral 300 / 300 Output: Urine 400 / 800 500 / 500 Other: # Unmeasured Voids 3 Weight 108 kg 108 kg Weight Measurement Method Built in [facility] Patient Weight 11/11/21 06:59 Weight 108 kg Chest X-Ray 11/08/21 19:41 XR chest 1V portable HISTORY: Atypical Chest Pain COMPARISON: Chest 11/20/2015. FINDINGS: The cardiac silhouette remains borderline enlarged. There is mild diffuse interstitial thickening, unchanged. No new focal lung consolidations to suggest pneumonia. No evidence for pulmonary edema. No pleural effusions. No pneumothorax. Spinal stimulator leads are again noted. IMPRESSION: No significant change compared to the prior study. No acute process. ACT 112: Negative or not required by law. Electronically signed by: Joel Nolasco M.D. 11/08/2021 8:15 PM Hospital Course (1) NSTEMI (non-ST elevated myocardial infarction): 56 yo male with PMHx of CAD s/p DC in 2015 with stent placement who presented to [facility] w/ NSTEMI and is s/p stent placement. -HS-trop elevated at 2457, EKG w/o ST elevations, but w/ new incomplete RBBB (compared w/ 2015). -TTE: echo: EF 50-55%. Mild hypokinesis of inferior wall. Severe hypokinesis of inferolateral. Mild concentric lvh. Normal RV size w/ mildly reduced systolic function. Mild AR. -Received 48+ hours of heparin drip -Encouraged smoking cessation -Cardiology consultation appreciated. Loaded with clopidogrel 600 mg in Ambulatory Nurse -Cardiology recs: Continue dual-antiplatelet therapy for at least 1 year, likely extended therapy in the setting of overlapping stents and ectatic distal RCA. Continue statin, and ASCVD risk factor modification. Consult cardiac Rehab. New regimen: * atorvastatin 40mg every night * metoprolol succinate 12.5mg every morning * baby aspirin (81mg) every morning * clopidogrel 75mg every day Consider addition of lisinopril if BP permits. Patient has had soft BP this admission. Can uptitrate beta rc as well. Please assist patient in smoking cessation and eap counselor routinely. Encourage routine followup w/ pcp and cardiology. Patient had been previously lost to followup after 2017. Patient was full code this admission. (2) S/P coronary artery stent placement: (3) Tobacco abuse: (4) Dyslipidemia: (5) CAD (coronary artery disease): Total Time Total Time Spent Total Time Spent (In Minutes): <30 Discharge Plan Discharge Items Patient Disposition: Home - Self-Care Reason For Visit: NSTEMI Discharge Diagnosis: NSTEMI Activity: Per Instructions section Non-emergency contact: Primary Care Provider Call non-emergency contact if: you have any medication questions and you have a fever Follow-up/Referrals: Emily Gibbs DO [Physician] - (establish new pcp. hospital discharge follow up with 1 week) Gallito Mercado MD [Primary Care Provider] - 11/17/21 2:30 pm Diet: Heart Healthy Addtl Attending Provider Instructions: You were admitted to [facility] and found to have a heart attack (NSTEMI). You were treated in the propagator laborer with a stent. Several medications have been prescribed. Please follow up with Dr. Mercado, the interventional cardiologists. Please also follow up with a PCP. Your PCP will refill your medications. I have referred you to Dr. Emily Gibbs at [facility] office. If you do not here from the derrick operator within a few days, please call to make an appointment yourself. Your PCP may be able to assist in quitting tobacco use. It is very important to quit tobacco and to follow up with your doctors regularly. New medications: * atorvastatin 40mg every night * metoprolol succinate 12.5mg every morning * baby aspirin (81mg) every morning * clopidogrel 75mg every day (can take any time, but your last dose was at 1pm in the hospital, so gradually shift to morning schedule, if that is your pre ference) * You will need both the baby aspirin and clopidogrel for at least a year, perhaps slightly longer. After that, would consider baby aspirin without clopidogrel. *sublingual (under tongue) nitroglycerin for chest pain. Take 1 tab; repeat every 5 minutes if angina persists; may administer up to 3 tablets in a 15- minute period. Call 911 if no relief by 2nd tab or if worsens. *Your escapement maker may have more specific instructions. There is another blood pressure medication (lisinopril) that is beneficial for your heart. Your PCP may consider adding this in the future. It currently is not yet added because your blood pressure is borderline low. Return precautions/cautions: See below. If you develop any new or worsening symptoms including fever, chills, sweats, chest pain, chest pressure, difficulty breathing, uncontrolled nausea/vomiting, rash, wheezing, passing out or nearly passing out, bleeding, black/bloody bowel movements, or other new or concerning symptoms please call your primary care physician, or call 911 for re-evaluation in the emergency department if you are very concerned. Addtl Civil Preparedness Officer Provider Instructions: ACTIVITY RECOMMENDATIONS: Excess manipulation of the wrist should be avoided for the next 24-48 hours. * No lifting over 2 pounds (approximately a 1/2 gallon of milk) with the utilized arm for 24 hours. * No strenuous activity such as bowling or tennis for 3 days. * Keep the site of the procedure covered with a bandage for 24 hours. *You may shower the day after the procedure. Do not take a tub bath or submerge the puncture site in water for the next 3 days. *Do not operate any motorized equipment for 3 days. SPECIAL CARE INSTRUCTIONS: The site may be slightly bruised and sore following your procedure. Should any of the following occur, contact the Dr. who performed your procedure. 1. Redness/inflammation, swelling, chills, or fever, or colored drainage at procedure site within 3-7 days after your procedure. 2. Coldness, discoloration, ongoing numbness, severe pain, or swelling. Expect mild tingling of hand and tenderness at the puncture site for up to three days. If this persists beyond three days, or other symptoms develop, notify the Dr. who performed your procedure. BLEEDING: If the procedure site on your wrist begins to bleed, do not panic 1. Place 1 or 2 fingers firmly just slightly above the insertion site to stop the bleeding. You may be able to feel your pulse as you hold pressure. 2. Lift your finger after 5 minutes to see if the bleeding has stopped. 3. Once the bleeding has stopped, gently wipe the wrist area clean with a bandage. * If the bleeding from your wrist does not stop after 10 minutes, or if there is a large amount of bleeding or spurting, call 911 (do not drive yourself to the hospital). SKIN IRRITATION: * You may experience some redness and/or swelling in the area where radiation was administered. If any skin irritation occurs, please contact your family physician. FOLLOW UP VISIT: 1. Follow up with Dr. Mercado in approx 1 week. [phone] for questions/concerns. 2. Keep any scheduled doctor appointments. Pending Studies at Discharge: No Stand-Alone Forms: [facility], Smoking Cessation Medications and DC Order Prescriptions: New atorvastatin 40 mg Tablet 40 mg PO HS 30 Days Qty: 30 RF: 1 aspirin 81 mg Tablet,Delayed Release (Dr/Ec) 81 mg PO QAM 30 Days Qty: 30 RF: 1 nitroglycerin [Nitrostat] 0.4 mg Tablet, Sublingual 0.4 mg sublingual UD PRN (Reason: chest pain) 30 Days Qty: 10 RF: 1 metoprolol succinate 25 mg Tablet Extended Release 24 Hr 12.5 mg PO QAM 30 Days Qty: 15 RF: 1 clopidogrel 75 mg tablet 75 mg PO DAILY Qty: 30 RF: 1 Discharge Orders: Discharge Order (Routine); Ordered 11/10/21 Ordered By: Chidi Thompson Admission Data Admit Date/Time: 11/08/21 23:46 Attending Provider: Nick Hernandez Admit Provider: Nery Christopher Primary Care Provider: Gallito Mercado Other Providers: Deniz Melchor ; Gallito Mercado Other Interventions: Discharge Summary Assessment (RN) Last Done: 11/10/21 16:55 Supervising Physician Co-Signing Physician Notes I personally examined the patient and verified all arboleda points of history and exam, discussed case, and agree with decision making with Dr Thompson Still pain free. Readdressed lifestyle changes from yesterday, discussed med management. Answered all questions the best my ability and her satisfaction. Family present. Notes that he struggles with stress and worrying more than he lets on vitals noted nad heent nc at mmm breathing unlabored no accessory muscles good effort skin no rashes no pallor or icterus NSTEMI -now status post cath and stenting. -Med management: Currently aspirin/Plavix, atorvastatin, metoprolol (hopefully can add TESHA inhibitor in the near future) -Lifestyle change: Smoke cessation, cardiac rehab --> segue to a goal of 20 minutes of cardiovascular exercise daily, transition to Mediterranean type of diet -Stress management, formal management for anxiety if needed otherwise as above Resident Activity Tracking Resident Involvement: Resident Care Provided Care Provided: Adult Hospital Medicine
--- NOTE | 2021-11-10 17:11 | Billing Data ---
Date of Service November 10, 2021 Coding Level of Care Code D/C DAY MANAGEMENT <30 MINS
--- NOTE | 2021-11-10 22:53 | Electrocardiogram Report ---
Test Reason : Blood Pressure : / mmHG Vent. Rate : 063 BPM Atrial Rate : 063 BPM P-R Int : 170 ms QRS Dur : 110 ms QT Int : 394 ms P-R-T Axes : 044 035 099 degrees QTc Int : 403 ms Normal sinus rhythm Incomplete right bundle branch block Cannot rule out Inferior infarct (cited on or before 20-NOV-2015) Abnormal ECG When compared with ECG of 22-NOV-2015 06:32, Incomplete right bundle branch block is now Present T wave inversion no longer evident in Inferior leads Confirmed by Daniel Damian ([id number]) on 11/10/2021 10:53:09 PM Referred By: REFERRED SELF Confirmed By:Daniel Damian
--- NOTE | 2021-11-10 22:54 | Electrocardiogram Report ---
Test Reason : Blood Pressure : / mmHG Vent. Rate : 058 BPM Atrial Rate : 058 BPM P-R Int : 180 ms QRS Dur : 102 ms QT Int : 422 ms P-R-T Axes : 040 022 092 degrees QTc Int : 414 ms Sinus bradycardia Incomplete right bundle branch block Abnormal ECG When compared with ECG of 08-NOV-2021 19:36, No significant change was found Confirmed by Daniel Damian ([id number]) on 11/10/2021 10:54:13 PM Referred By: REFERRED SELF Confirmed By:Daniel Damian
--- NOTE | 2021-11-10 22:58 | Electrocardiogram Report ---
Test Reason : Blood Pressure : / mmHG Vent. Rate : 060 BPM Atrial Rate : 060 BPM P-R Int : 168 ms QRS Dur : 102 ms QT Int : 430 ms P-R-T Axes : 043 024 084 degrees QTc Int : 430 ms Normal sinus rhythm Incomplete right bundle branch block Abnormal ECG When compared with ECG of 08-NOV-2021 20:54, No significant change was found Confirmed by Daniel Damian ([id number]) on 11/10/2021 10:58:19 PM Referred By: REFERRED SELF Confirmed By:Daniel Damian
--- NOTE | 2021-11-11 06:03 | Electrocardiogram Report ---
Test Reason : Blood Pressure : / mmHG Vent. Rate : 063 BPM Atrial Rate : 063 BPM P-R Int : 176 ms QRS Dur : 100 ms QT Int : 412 ms P-R-T Axes : 048 029 096 degrees QTc Int : 421 ms Normal sinus rhythm Cannot rule out Inferior infarct , age undetermined Abnormal ECG When compared with ECG of 09-NOV-2021 05:55, Incomplete right bundle branch block is no longer Present Confirmed by Daniel Damian ([id number]) on 11/11/2021 6:03:00 AM Referred By: REFERRED SELF Confirmed By:Daniel Damian
--- NOTE | 2021-11-11 22:52 | Electrocardiogram Report ---
Test Reason : Blood Pressure : / mmHG Vent. Rate : 062 BPM Atrial Rate : 062 BPM P-R Int : 168 ms QRS Dur : 110 ms QT Int : 410 ms P-R-T Axes : 052 004 070 degrees QTc Int : 416 ms Normal sinus rhythm Incomplete right bundle branch block Cannot rule out Inferior infarct (cited on or before 09-NOV-2021) Abnormal ECG When compared with ECG of 09-NOV-2021 14:35, Incomplete right bundle branch block is now Present Confirmed by Daniel Damian ([id number]) on 11/11/2021 10:51:53 PM Referred By: REFERRED SELF Confirmed By:Daniel Damian
== END 2021-11-10 17:39 | disposition home or self-care (01) | DRG 247 ==
LOC: ED 19:22 → SUATTDRO 23:46 → 2E 23:46

== ENCOUNTER 2022-07-28 08:53 | Observation (INO) ==
--- NOTE | 2022-07-28 09:00 | Emergency Department Note ---
Impression & Plan Acute pancreatitis, Acute hyponatremia, CAD (coronary artery disease) ED Provider Note NAME: TU ARCHER AGE: 57 SEX: M : 1965 ARRIVES VIA: Walk-In INFORMANT: Patient, ED PROVIDER(S): Mike Musa MD CHIEF COMPLAINT: Abdominal pain MEDICAL DECISION MAKING: Patient did present due to concern for abdominal pain was ordered IV fluids IV Zofran and IV morphine and a CT abdomen pelvis with IV contrast. Did have blood work completed which showed hyponatremia 126 with normal kidney function. The patient's lipase is slightly elevated at 103. Urinalysis that shows some blood and ketones. Patient has declined any urinary symptoms. The patient CT did show concern for acute pancreatitis. The patient denies any alcohol use. Patient denies any history of hyperlipidemia triglyceridemia no recent trauma or procedures. Patient was ordered additional pain medication IV fluids. I did speak the on-call hospitalist Dr. Zamora and the patient was admitted to the medicine service Prior /Outside records reviewed: I did review the patient's most recent vascular medicine progress note from Dr. Mercado from April 05, 2022. Differential diagnosis: Appendicitis, testicular torsion, infections, diverticulitis, UTI, obstruction, mesenteric ischemia, aortic pathology, inflammatory bowel disease, renal colic, PUD, pancreatitis, biliary pathology, hernia, volvulus, constipation, as well as other pathologies. Diagnostics, as interpreted by me: ECG: None Cardiac monitoring: An order was placed for continuous cardiac monitoring. The monitor shows a rate of 82 with sinus rhythm. Patient was placed on pulse oximetry Medical decision rules: None Imaging studies: See below HPI: Patient presents due to concern for abdominal pain. Patient states he initially noticed it Monday and on Monday thought it was just upset stomach does not seem to be more in the upper abdomen. The patient thought it may been secondary to eating some pizza. The patient did try some Pepto-Bismol and Mylanta but without improvement in symptoms. Patient has had nausea and associated vomiting. No diarrhea decreased p.o. intake since then. The patient has noticed more pain in the lower and mid abdomen. Patient denies any chest pains or shortness of breath no cough or fevers. The patient has had a prior history of cholecystectomy and appendectomy. Patient denies any dysuria or hematuria. No additional exacerbating remitting factors PAST MEDICAL HISTORY: See Below PAST SURGICAL HISTORY: See Below SOCIAL HISTORY: See Below HOME MEDICATIONS: See Below ALLERGIES: See Below VITALS: See Below PHYSICAL EXAMINATION: GENERAL: NAD, wearing a mask, non-toxic. EYE EXAM: Normal conjunctiva. PERRL, no anisocoria and EOM's grossly intact w/o pain. NECK: Supple, no nuchal rigidity, no adenopathy, non-tender. No signs of meningismus. FROM of the neck with good chin to chest and neck extension. No stridor. LUNGS: Clear to auscultation. Normal chest wall mechanics. HEART: NSR, no MRG. ABDOMEN: Abdomen soft, right-sided and suprapubic pain without left-sided or upper pain. Normo-active bowel sounds, no masses, no rebound or guarding. BACK: No CVA TTP. SKIN: No rashes and no bruising. UPPER EXTREMITIES: Upper extremities are grossly normal. LOWER EXTREMITIES: Grossly normal, no edema. NEURO EXAM: A&O x3, cranial nerves II-XII grossly intact, normal speech, moves all 4 extremities. 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 Feels Safe at Home: Yes Safety Concerns: Feels Safe At This Time Assistive Devices: None Allergies Allergies Allergy/AdvReac Type Severity Reaction Status Date / Time Cephalosporins Allergy Severe HIVES Unverified 07/28/22 10:00 cefazolin [From Anc] Allergy Unknown Unverified 07/28/22 10:00 Home Meds Previous Rx's Medication Instructions Recorded aspirin 81 mg tablet,delayed 81 mg PO QAM 30 days #30 tabs 11/10/21 release nitroglycerin 0.4 mg sublingual 0.4 mg sublingual UD PRN chest 11/10/21 tablet (Nitrostat) pain 30 days #10 tabs lisinopril 5 mg tablet 5 mg PO DAILY #90 tabs 01/10/22 atorvastatin 40 mg tablet 40 mg PO HS 90 days #90 tabs 06/21/22 clopidogrel 75 mg tablet 75 mg PO DAILY #90 tabs 06/21/22 metoprolol succinate 25 mg 12.5 mg PO QAM 90 days #45 tabs 06/21/22 tablet,extended release 24 hr Results & Data (ED) Vital Signs Vital Signs - 24 hr 07/28/22 08:54 07/28/22 09:33 07/28/22 10:20 Temperature 36.5 C Temperature Source Temporal Artery Scan Pulse Rate 97 H 79 Pulse Rate from SpO2 Sensor 79 Respiratory Rate 18 Respiratory Depth Normal Blood Pressure 114/79 Blood Pressure Mean 90 Blood Pressure Position Sitting Pulse Oximetry 96 93 Oxygen Delivery Method Room Air Room Air Room Air Sepsis Recent Fever Within 48 Hours No Sepsis New/Unexplained Change in Mental Status No Sepsis Action Taken by Nursing No Action Required 07/28/22 10:30 07/28/22 11:00 07/28/22 11:30 Temperature Temperature Source Pulse Rate 78 75 75 Pulse Rate from SpO2 Sensor 77 75 75 Respiratory Rate 25 H 20 24 Respiratory Depth Blood Pressure 113/77 Blood Pressure Mean 89 Blood Pressure Position Pulse Oximetry 94 93 94 Oxygen Delivery Method Room Air Room Air Room Air Sepsis Recent Fever Within 48 Hours Sepsis New/Unexplained Change in Mental Status Sepsis Action Taken by Nursing 07/28/22 12:00 Temperature Temperature Source Pulse Rate 73 Pulse Rate from SpO2 Sensor 72 Respiratory Rate 24 Respiratory Depth Blood Pressure Blood Pressure Mean Blood Pressure Position Pulse Oximetry 94 Oxygen Delivery Method Room Air Sepsis Recent Fever Within 48 Hours Sepsis New/Unexplained Change in Mental Status Sepsis Action Taken by Longterm Medications Current Medication List: was personally reviewed by me Laboratory Data Attestation: I reviewed the patient's lab results. 07/28/22 09:30 07/28/22 09:30 Lab Results 07/28/22 07/28/22 07/28/22 Range/Units 09:30 09:30 09:30 WBC 18.13 H (4.8-10.8) K/ul RBC 5.48 (4.70-6.10) M/uL Hgb 17.7 (14.0-18.0) g/dl Hct 47.6 (42.0-52.0) % MCV 86.9 (80.0-100.0) fL MCH 32.3 (25.0-34.0) pg MCHC 37.2 H (32.0-36.0) g/dL RDW Std Deviation 39.7 (36.4-46.3) fL RDW Coeff of Susanne 12.5 (11.5-14.5) % Plt Count 224 (130-400) K/uL MPV 9.6 (9.4-12.4) fL Immature Gran % (Auto) 0.8 % Neut % (Auto) 75.9 % Lymph % (Auto) 13.0 % [place] % (Auto) 9.3 % Eos % (Auto) 0.6 % Baso % (Auto) 0.4 % Neut # (Auto) 13.77 H (1.40-6.50) K/uL Lymph # (Auto) 2.35 (1.2-3.4) K/uL [place] # (Auto) 1.69 H (0.11-0.59) K/uL Eos # (Auto) 0.10 (0-0.50) K/uL Baso # (Auto) 0.07 (0-0.2) K/uL Immature Gran # (Auto) 0.15 (0.01-0.20) K/uL Sodium 126 L (136-145) mmol/L Potassium 4.0 (3.5-5.1) mmol/L Chloride 94 L (98-107) mmol/L Carbon Dioxide 22 (21-32) mmol/L Anion Gap 10 (3-11) BUN 14 (6-23) mg/dl Creatinine 0.87 (0.6-1.4) mg/dl Est Cr Clr Drug Dosing 115.0 ml/min Est GFR ( Amer) 111.0 ml/min Est GFR (Non-Af Amer) 95.8 ml/min BUN/Creatinine Ratio 16.1 (10-20) Glucose 119 H (70-99(Fasting)) mg/dl Calcium 9.7 (8.5-10.1) mg/dl Total Bilirubin 1.2 H (0.2-1.0) mg/dl AST 18 (13-39) U/L ALT 29 (7-52) U/L Alkaline Phosphatase 92 (34-104) U/L Total Protein 7.4 (6.0-8.3) gm/dl Albumin 4.0 (3.4-5.0) gm/dl Globulin 3.4 (2.5-4.0) gm/dl Albumin/Globulin Ratio 1.2 (0.9-2) Triglycerides 81 (0-150) mg/dl Lipase 103 H (11-82) U/L Urine Color [place] Urine Appearance Clear (Clear) Urine pH 5.5 (4.5-7.5) Ur Specific [place] 1.023 (1.000-1.030) Urine Protein Trace H (Negative) Urine Glucose (UA) Negative (Negative) Urine Ketones Trace H (Negative) Urine Blood Trace H (Negative) Urine Nitrite Negative (Negative) Urine Bilirubin 1+ H (Negative) Urine Urobilinogen Negative (Negative) Ur Leukocyte Esterase Trace H (Negative) Urine WBC (Auto) 1-5 (0-5) /hpf Urine RBC (Auto) 0-4 (0-4) /hpf U Hyaline Cast (Auto) 1-5 (0-5) /lpf U Epithel Cells (Auto) 10-20 H (0-5) /lpf Urine Bacteria (Auto) 1+ H (Negative) Urine Mucus Present A (None Prsent) Administered Medications Aspirin (Aspirin 81 Mg Ectab) 81 mg PO QAM JACOB Stop: 08/28/22 08:59 Last Admin: 07/29/22 07:47 Dose: 81 mg Documented By: [id number] Atorvastatin Calcium (Atorvastatin 40 Mg Tab) 40 mg PO HS [facility] Stop: 08/27/22 20:59 Last Admin: 07/28/22 20:49 Dose: 40 mg Documented By: [email or web address] Clopidogrel Bisulfate (Clopidogrel Bisulfate 75 Mg Tab) 75 mg PO DAILY [facility] Stop: 08/28/22 08:59 Last Admin: 07/29/22 07:47 Dose: 75 mg Documented By: [id number] Sodium Chloride (Nss 1000ml) 1,000 mls @ 200 mls/hr IV .Q5H JACOB Stop: 07/29/22 10:38 Last Admin: 07/29/22 07:46 Dose: 125 mls/hr Documented By: [id number] Infusion: 07/29/22 07:31 Dose: 125 mls/hr Documented By: [id number] Admin: 07/28/22 23:31 Dose: 125 mls/hr Documented By: Infusion: 07/28/22 23:31 Dose: 125 mls/hr Documented By: Admin: 07/28/22 16:04 Dose: 125 mls/hr Documented By: [id number] Metoprolol Succinate (Metoprolol Succ 25mg Ext Rel Tab) 12.5 mg PO QAM JACOB Stop: 08/28/22 08:59 Last Admin: 07/29/22 07:47 Dose: 12.5 mg Documented By: [id number] Discontinued Medications Sodium Chloride (Nss 1000ml) 1,000 mls @ 999 mls/hr IV .Q1H1M STA Stop: 07/28/22 10:13 Last Infusion: 07/28/22 10:30 Dose: 0 mls/hr Documented By: Admin: 07/28/22 09:29 Dose: 999 mls/hr Documented By: [email or web address] Lactated Ringer's (Lr) 1,000 mls @ 999 mls/hr IV .Q1H1M ONE Stop: 07/28/22 12:56 Last Infusion: 07/28/22 13:25 Dose: 0 mls/hr Documented By: [id number] Admin: 07/28/22 12:14 Dose: 999 mls/hr Documented By: [id number] Sodium Chloride (Nss) 500 mls @ 125 mls/hr IV .Q4H JACOB Stop: 08/27/22 11:59 Last Admin: 07/28/22 12:18 Dose: Not Given Documented By: [id number] Famotidine 20 mg/ Syringe 5 mls @ 2.5 mls/min IV NOW ONE Stop: 07/28/22 12:31 Last Admin: 07/28/22 12:43 Dose: 2.5 mls/min Documented By: [id number] Ioversol (Optiray 350 100ml) 94 ml IV ONCE ONE Stop: 07/28/22 11:12 Last Admin: 07/28/22 11:11 Dose: 94 ml Documented By: [email or web address] Morphine Sulfate (Morphine Sulfate 4 Mg/Ml 1 Ml Carp\Vial) 4 mg IV NOW STA Stop: 07/28/22 09:14 Last Admin: 07/28/22 09:30 Dose: 4 mg Documented By: NUNU Morphine Sulfate (Morphine Sulfate 4 Mg/Ml 1 Ml Carp\Vial) 4 mg IV NOW STA Stop: 07/28/22 11:58 Last Admin: 07/28/22 12:14 Dose: 4 mg Documented By: [id number] Ondansetron HCl (Ondansetron Inj 2 Mg/Ml 2 Ml Vial) 4 mg IV NOW STA Stop: 07/28/22 09:14 Last Admin: 07/28/22 09:29 Dose: 4 mg Documented By: NUNU Imaging Data Radiologist's Impression: Abdomen/Pelvis CT 07/28/22 09:13 CT abd pelvis IV con only CLINICAL HISTORY: R sided and lower ab pain; vomiting; h/o appy/chol TECHNIQUE: Helical axial images of the abdomen and pelvis were obtained and displayed. Automated dose lowering techniques and/or adjustment according to patient size were utilized for this exam. This exam was performed with intravenous contrast. CT DOSE: 639.99 mGy.cm COMPARISON: None available at the time of this dictation. FINDINGS: Lower chest: Bibasilar atelectasis versus scarring is seen. Liver: Unremarkable. No focal lesions are seen. Gallbladder and biliary tree: Patient is status post cholecystectomy. No intra- or extrahepatic biliary ductal dilation. Pancreas: There is prominence and hypodensity of the pancreatic head with surrounding fat stranding. Spleen: Calcifications are noted in the spleen compatible with prior granulomatous disease. Adrenals: Unremarkable. Kidneys and ureters: Prominent left renal pelvis is noted. Bladder: Unremarkable. Reproductive organs: Unremarkable. Bowel: Diverticulosis is seen without evidence of diverticulitis. Lymph nodes Retroperitoneal: Subcentimeter lymph nodes are noted. Pelvic: Unremarkable. Mesenteric: Unremarkable. Peritoneum: Soft tissue stranding is seen about the pancreatic head. Vessels: Atherosclerotic calcifications are seen. Abdominal wall: Unremarkable. Bones: Unremarkable. IMPRESSION: Pancreatic head edema and surrounding fat stranding are compatible with acute pancreatitis. No discrete fluid collections are seen. ACT 112: Negative or not required by law. Electronically signed by: Satya Quiroz M.D. 07/28/2022 11:30 AM Discharge Plan Visit Data Chief Complaint: Abdominal Pain Stated Complaint: STOMACH ISSUES, VOMITING, NAUSEA ED Provider: Mike Musa Discharge Problem: Acute pancreatitis, Acute hyponatremia, CAD (coronary artery disease) Patient Disposition: Admitted As Inpatient Discharge Instructions Interventions: ED Discharge Assessment Last Done: 07/28/22 15:24
[2022-07-28] MEDS ORDERED: ONDANSETRON INJ 2 MG/ML 2 ML VIAL IV STA (09:13)
[2022-07-28] MEDS ORDERED: SODIUM CHLORIDE 0.9% 1000ML 1,000 ML IV STA (09:13)
[2022-07-28] MEDS ORDERED: MoRPHine SULFATE 4 MG/ML 1 ML CARP\\VIAL IV STA ×2 (09:13→11:57)
[2022-07-28 10:12] LABS: Appearance Urine Clear (Clear); Blood Urine Trace (Negative); Color Urine Orange; Glucose Urine UA Negative (Negative); Ketones Urine Trace (Negative); Leukocyte Esterase Urine Trace (Negative); Nitrite Urine Negative (Negative); Protein Urine Trace (Negative); Specific Gravity Urine 1.023 (1.000-1.030); Urobilinogen Urine Negative (Negative); pH Urine 5.5 (4.5-7.5)
[2022-07-28 10:14] LABS: Bilirubin Urine 1+ (Negative)
[2022-07-28 10:26] LABS: Bacteria Urine Automated 1+ (Negative); Mucus Urine Present (None Prsent); RBC Urine Automated 0-4 /hpf (0-4)
[2022-07-28 10:50] LABS: Albumin Globulin Ratio 1.2 (0.9-2); BUN Creatinine Ratio 16.1 (10-20); Bilirubin,Total 1.2 mg/dl (0.2-1.0); Calcium 9.7 mg/dl (8.5-10.1); Est GFR (Non-African American) 95.8 ml/min; Globulin 3.4 gm/dl (2.5-4.0); Total Protein 7.4 gm/dl (6.0-8.3)
[2022-07-28] MEDS ORDERED: OPTIRAY 350 100ml IV ONE (11:11)
--- NOTE | 2022-07-28 11:31 | CT Scan Report ---
CT abd pelvis IV con only CLINICAL HISTORY: R sided and lower ab pain; vomiting; h/o appy/chol TECHNIQUE: Helical axial images of the abdomen and pelvis were obtained and displayed. Automated dose lowering techniques and/or adjustment according to patient size were utilized for this exam. This e xam was performed with intravenous contrast. CT DOSE: 639.99 mGy.cm COMPARISON: None available at the time of this dictation. FINDINGS: Lower chest: Bibasilar atelectasis versus scarring is seen. Liver: Unremarkable. No focal lesions are seen. Gallbladder and biliary tree: Patient is status post cholecystectomy. No intra- or extrahepatic bilia ry ductal dilation. Pancreas: There is prominence and hypodensity of the pancreatic head with surrounding fat stranding. Spleen: Calcifications are noted in the spleen compatible with prior granulomatous disease. Adrenals: Unremarkable. Kidneys and ureters: Prominent left renal pelvis is noted. Bladder: Unremarkable. Reproductive organs: Unremarkable. Bowel: Diverticulosis is seen without evidence of diverticulitis. Lymph nodes Retroperitoneal: Subcentimeter lymph nodes are noted. Pelvic: Unremarkable. Mesenteric: Unremarkable. Peritoneum: Soft tissue stranding is seen about the pancreatic head. Vessels: Atherosclerotic calcifications are seen. Abdominal wall: Unremarkable. Bones: Unremarkable. IMPRESSION: Pancreatic head edema and surrounding fat stranding are compatible with acute pancreatitis. No discre te fluid collections are seen. ACT 112: Negative or not required by law. Electronically signed by: Satya Quiroz M.D. 07/28/2022 11:30 AM
[2022-07-28] MEDS ORDERED: LACTATED RINGER'S 1,000 ML IV ONE (11:56)
[2022-07-28] MEDS ORDERED: SODIUM CHLORIDE 0.9% 500 ML IV SCH (12:00)
--- NOTE | 2022-07-28 12:11 | History & Physical Report ---
Date of Service July 28, 2022 Assessment & Plan (1) Acute pancreatitis: Plan: Epigastric pain and CT findings consistent with this despite minimally elevated lipase. NSS 1L bolus given in ER. Will give additional 1L LR bolus now then NSS @ 200 ml/hr for additional 3L Triglyceride and LFTs normal, no CBD dilatation on CT. No alcohol use. Calcium level normal. Therefore idiopathic. Clear liquid, low fat diet, advance as tolerated Ondansetron for nausea, morphine for pain (2) Acute hyponatremia: Plan: Continue to monitor on normal saline. (3) CAD (coronary artery disease): Plan: Continue aspirin, clopidogrel, metoprolol, atorvastatin. Plan VTE Prophylaxis - Lovenox 40mg SQ daily Diet - clear liquid, low fat, advance diet as tolerated Disposition - observation status to med/surg Admission and Anticipated Discharge Date Admission Date: July 28, 2022 History of Present Illness Chief Complaint: Abdominal pain, nausea, vomiting Primary Care Provider: Torito Mercado MD Jhon Alvarado is a 57-year-old male who presents to the ER with a 3-day history of nausea, vomiting and abdominal pain. Symptoms started on Monday although he also reports stomach upset after eating pizza the previous day. Became much worse on Monday when he was only able to eat beef broth. Not able to eat since Monday and drinking little. Taking Mylanta and Pepto-Bismol with no difference. Abdominal pain is generalized around the umbilical area, radiating to his back, occasional cramping. Severity 10 out of 10 this morning and yesterday, currently 7 out of 10 after pain medication given in the ER. Associated nausea and vomiting. No hematemesis. He does note occasional acid taste in the back of his mouth. In the ER CT abdomen/pelvis showed pancreatic head edema with surrounding fat stranding compatible with acute pancreatitis with no intra or extrahepatic biliary ductal dilatation. Lipase 103 U/L. He was diagnosed with acute pancreatitis and referred to medicine for admission ongoing management. He reportedly does not drink alcohol, take herbal supplements or any [id number] medications. No recent changes to his chronic medications which he last took this morning. Allergies Allergy/AdvReac Type Severity Reaction Status Date / Time Cephalosporins Allergy Severe HIVES Unverified 07/28/22 10:00 cefazolin [From Anc] Allergy Unknown Unverified 07/28/22 10:00 Home Medications Medication Instructions Recorded Confirmed Type aspirin 81 mg tablet,delayed 81 mg PO QAM 30 days #30 tabs 11/10/21 07/28/22 Rx release nitroglycerin 0.4 mg sublingual 0.4 mg sublingual UD PRN chest 11/10/21 07/28/22 Rx tablet (Nitrostat) pain 30 days #10 tabs lisinopril 5 mg tablet 5 mg PO DAILY #90 tabs 01/10/22 07/28/22 Rx atorvastatin 40 mg tablet 40 mg PO HS 90 days #90 tabs 06/21/22 07/28/22 Rx clopidogrel 75 mg tablet 75 mg PO DAILY #90 tabs 06/21/22 07/28/22 Rx metoprolol succinate 25 mg 12.5 mg PO QAM 90 days #45 tabs 06/21/22 07/28/22 Rx tablet,extended release 24 hr Past Med/Surg History Medical History CAD (coronary artery disease) Dyslipidemia NSTEMI (non-ST elevated myocardial infarction) Tobacco abuse Surgical History Hx of appendectomy Hx of cholecystectomy S/P coronary artery stent placement Social History Smoking Status: Current every day smoker Tobacco Type: Cigarettes Cigarettes Per Day: 1 pack; Second Hand Exposure: No; Hx Alcohol Use: No Hx Substance Use: No Preferred Language: Luxembourgish Communication Ability: Effective Paper Testing Supervisor Required: No Beliefs That Will Affect Care: None Current Living Situation: Spouse and Family Current Living Situation Comment: Lives at home w/ spouse and 2 children. Feels Safe at Home: Yes Safety Concerns: Feels Safe At This Time Assistive Devices: None Review of Systems Review of Systems: All systems reviewed & are unremarkable except as noted in HPI & below Physical Exam Constitutional: WD/WN, vitals as above ENMT: external ear and nose normal, oropharynx normal Respiratory: normal respiratory effort, lungs clear to auscultation Cardiovascular: RRR, no murmur, no edema Gastrointestinal (Abdomen): Inspection/Auscultation: abdomen normal to inspection; abdomen not distended Percussion/Palpation: + abdomen tender (epigastric) and abdomen soft; no guarding and abdomen not rigid Musculoskeletal: no cyanosis or clubbing, extremities motor strength 5/5 Skin: no rashes, warm and dry Neurologic: moves all extremities and awake; not confused Psychiatric: A+Ox3, euthymic affect Results & Data Results & Data ([facility]) Vital Signs (Past 12 Hours) Vital Signs Temp Pulse Resp BP Pulse Ox O2 Del Method 07/28/22 10:30 78 25 H 113/77 94 Room Air 07/28/22 10:20 79 93 Room Air 07/28/22 09:33 Room Air 07/28/22 08:54 36.5 C 97 H 18 114/79 96 Room Air Laboratory Results Abnormal lab results 07/28/22 07/28/22 Range/Units 09:30 09:30 Sodium 126 L (136-145) mmol/L Chloride 94 L (98-107) mmol/L Glucose 119 H (70-99(Fasting)) mg/dl Total Bilirubin 1.2 H (0.2-1.0) mg/dl Lipase 103 H (11-82) U/L Urine Protein Trace H (Negative) Urine Ketones Trace H (Negative) Urine Blood Trace H (Negative) Urine Bilirubin 1+ H (Negative) Ur Leukocyte Esterase Trace H (Negative) U Epithel Cells (Auto) 10-20 H (0-5) /lpf Urine Bacteria (Auto) 1+ H (Negative) Urine Mucus Present A (None Prsent) Diagnostic Findings CT abd pelvis IV con only CLINICAL HISTORY: R sided and lower ab pain; vomiting; h/o appy/chol TECHNIQUE: Helical axial images of the abdomen and pelvis were obtained and disp layed. Automated dose lowering techniques and/or adjustment according to patient size were utilized for this exam. This exam was performed with intravenous contrast. CT DOSE: 639.99 mGy.cm COMPARISON: None available at the time of this dictation. FINDINGS: Lower chest: Bibasilar atelectasis versus scarring is seen. Liver: Unremarkable. No focal lesions are seen. Gallbladder and biliary tree: Patient is status post cholecystectomy. No intra- or extrahepatic biliary ductal dilation. Pancreas: There is prominence and hypodensity of the pancreatic head with surrounding fat stranding. Spleen: Calcifications are noted in the spleen compatible with prior granulomatous disease. Adrenals: Unremarkable. Kidneys and ureters: Prominent left renal pelvis is noted. Bladder: Unremarkable. Reproductive organs: Unremarkable. Bowel: Diverticulosis is seen without evidence of diverticulitis. Lymph nodes Retroperitoneal: Subcentimeter lymph nodes are noted. Pelvic: Unremarkable. Mesenteric: Unremarkable. Peritoneum: Soft tissue stranding is seen about the pancreatic head. Vessels: Atherosclerotic calcifications are seen. Abdominal wall: Unremarkable. Bones: Unremarkable. IMPRESSION: Pancreatic head edema and surrounding fat stranding are compatible with acute pancreatitis. No discrete fluid collections are seen. Medications Administered ER medications given: NSS 1 L bolus Morphine 4 mg IV x2 Ondansetron 4 mg IV ECG Indication: abdominal pain Rate (beats per minute): 73 Rhythm: normal sinus Findings: + RBBB (incomplete) Comparison ECG Date: from (November 10, 2021) Change: the following changes noted (T wave inversion no longer evident in anterolateral leads) Code Status & VTE Plan Code Status Full VTE Prophylaxis Plan VTE Prophylaxis will be ordered: Yes PG Care Time/CCT Total # of Minutes Spent Total Time Spent with Patient: Total time spent is greater than 50% in coordination of care (as documented) at patient's floor/unit and/or counseling patient: Coding Level of Care Code 39616 INT INP/OBS CARE 2/55MIN Diagnoses Acute pancreatitis K85.90 Acute hyponatremia E87.1 CAD (coronary artery disease) I25.119 Associated angina: with unspecified form of angina Coronary Disease-Associated Artery/Lesion type: unspecified vessel or lesion type [place] vs. transplanted heart: [place] heart (1) CAD (coronary artery disease) Associated angina: with unspecified form of angina Coronary Disease- Associated Artery/Lesion type: unspecified vessel or lesion type [place] vs. transplanted heart: [place] heart Qualified Code(s): I25.119 - Atherosclerotic heart disease of [place] coronary artery with unspecified angina pectoris
[2022-07-28] MEDS ORDERED: FAMOTIDINE 20 MG in SYRINGE 3 ML IV ONE (12:30)
[2022-07-28 13:39] LABS: Basophils # (auto) 0.07 K/uL (0-0.2); Basophils % (auto) 0.4 %; Eosinophils % (auto) 0.6 %; Hematocrit (blood only) 47.6 % (42.0-52.0); Hemoglobin 17.7 g/dl (14.0-18.0); Immature Granulocytes # (auto) 0.15 K/uL (0.01-0.20); Immature Granulocytes % (auto) 0.8 %; Lymphocytes # (auto) 2.35 K/uL (1.2-3.4); Mean Corpuscular Hemoglobin 32.3 pg (25.0-34.0); Mean Corpuscular Hgb Conc 37.2 g/dL (32.0-36.0); Mean Corpuscular Volume 86.9 fL (80.0-100.0); Mean Platelet Volume 9.6 fL (9.4-12.4); Monocytes # (auto) 1.69 K/uL (0.11-0.59); Monocytes % (auto) 9.3 %; Neutrophils # (auto) 13.77 K/uL (1.40-6.50); Neutrophils % (auto) 75.9 %; Platelet Count 224 K/uL (130-400); RDW Coefficient of Variation 12.5 % (11.5-14.5); RDW Standard Deviation 39.7 fL (36.4-46.3); Red Blood Count 5.48 M/uL (4.70-6.10); White Blood Count 18.13 K/ul (4.8-10.8)
[2022-07-28] MEDS ORDERED: ONDANSETRON INJ 2 MG/ML 2 ML VIAL IV PRN (15:23)
[2022-07-28] MEDS ORDERED: ACETAMINOPHEN 325 MG TAB PO PRN (15:48)
[2022-07-28] MEDS ORDERED: MoRPHine SULFATE 4 MG/ML 1 ML CARP\\VIAL IV PRN (15:48)
[2022-07-28] MEDS: SODIUM CHLORIDE 0.9% 1000ML 1,000 ML IV SCH ×2 (16:04→23:31)
[2022-07-28 19:27] LABS: Calcium 8.9 mg/dl (8.5-10.1)
[2022-07-28 19:32] LABS: BUN Creatinine Ratio 14.8 (10-20); Creatinine Clr Calc Pharmacy 123.5 ml/min; Est GFR (African American) 114.3 ml/min; Est GFR (Non-African American) 98.7 ml/min
[2022-07-28] MEDS ORDERED: ATORVASTATIN 40 MG TAB PO SCH (21:00)
[2022-07-29] MEDS: SODIUM CHLORIDE 0.9% 1000ML 1,000 ML IV SCH (07:46)
[2022-07-29 07:53] LABS: Basophils # (auto) 0.07 K/uL (0-0.2); Basophils % (auto) 0.4 %; Eosinophils % (auto) 1.3 %; Hematocrit (blood only) 42.5 % (42.0-52.0); Immature Granulocytes # (auto) 0.12 K/uL (0.01-0.20); Immature Granulocytes % (auto) 0.8 %; Lymphocytes % (auto) 15.4 %; Mean Corpuscular Hemoglobin 31.6 pg (25.0-34.0); Mean Corpuscular Hgb Conc 35.3 g/dL (32.0-36.0); Mean Corpuscular Volume 89.7 fL (80.0-100.0); Mean Platelet Volume 9.4 fL (9.4-12.4); Monocytes # (auto) 1.37 K/uL (0.11-0.59); Monocytes % (auto) 8.8 %; Neutrophils # (auto) 11.41 K/uL (1.40-6.50); Neutrophils % (auto) 73.3 %; Platelet Count 203 K/uL (130-400); RDW Coefficient of Variation 12.5 % (11.5-14.5); RDW Standard Deviation 41.7 fL (36.4-46.3); Red Blood Count 4.74 M/uL (4.70-6.10); White Blood Count 15.57 K/ul (4.8-10.8)
[2022-07-29 08:17] LABS: Albumin Level 3.3 gm/dl (3.4-5.0); Bilirubin,Total 1.1 mg/dl (0.2-1.0); Calcium 8.6 mg/dl (8.5-10.1)
[2022-07-29 08:23] LABS: Albumin Globulin Ratio 1.2 (0.9-2); BUN Creatinine Ratio 15.9 (10-20); Est GFR (African American) 113.8 ml/min; Est GFR (Non-African American) 98.2 ml/min; Globulin 2.7 gm/dl (2.5-4.0)
[2022-07-29] MEDS ORDERED: ASPIRIN 81 MG ECTAB PO SCH (09:00)
[2022-07-29] MEDS ORDERED: METOPROLOL SUCC 25MG EXT REL TAB PO SCH (09:00)
[2022-07-29] MEDS ORDERED: CLOPIDOGREL BISULFATE 75 MG TAB PO SCH (09:00)
[2022-07-29] MEDS ORDERED: FAMOTIDINE 20 MG in SYRINGE 3 ML IV SCH (09:00)
[2022-07-29] MEDS ORDERED: ENOXAPARIN INJ 40 MG/0.4 ML SYR SQ SCH (09:00)
--- NOTE | 2022-07-29 15:03 | Electrocardiogram Report ---
Test Reason : Blood Pressure : / mmHG Vent. Rate : 073 BPM Atrial Rate : 073 BPM P-R Int : 162 ms QRS Dur : 098 ms QT Int : 400 ms P-R-T Axes : 043 022 027 degrees QTc Int : 440 ms Normal sinus rhythm Incomplete right bundle branch block Borderline ECG When compared with ECG of 10-NOV-2021 05:59, T wave inversion no longer evident in Anterolateral leads Confirmed by Torito Kurtz ([id number]) on 07/29/2022 3:03:13 PM Referred By: REFERRED SELF Confirmed By:Kelvin Kurtz
--- NOTE | 2022-07-31 18:54 | Discharge Summary ---
Date of Service July 31, 2022 Admission HPI Per Admitting Provider Jhon Alvarado is a 57-year-old male who presents to the ER with a 3-day history of nausea, vomiting and abdominal pain. Symptoms started on Monday although he also reports stomach upset after eating pizza the previous day. Became much worse on Monday when he was only able to eat beef broth. Not able to eat since Monday and drinking little. Taking Mylanta and Pepto-Bismol with no difference. Abdominal pain is generalized around the umbilical area, radiating to his back, occasional cramping. Severity 10 out of 10 this morning and yesterday, currently 7 out of 10 after pain medication given in the ER. Ass ociated nausea and vomiting. No hematemesis. He does note occasional acid taste in the back of his mouth. In the ER CT abdomen/pelvis showed pancreatic head edema with surrounding fat stranding compatible with acute pancreatitis with no intra or extrahepatic biliary ductal dilatation. Lipase 103 U/L. He was diagnosed with acute pancreatitis and referred to medicine for admission ongoing management. He reportedly does not drink alcohol, take herbal supplements or any kigb-dec-cdzazvc medications. No recent changes to his chronic medications which he last took this morning. Principal Diagnosis Acute pancreatitis with no complication with unclear etiology Discharge Exam Constitutional WD/WN, vitals as above ENMT external ear and nose normal, oropharynx normal Respiratory normal respiratory effort, lungs clear to auscultation Cardiovascular RRR, no murmur, no edema Gastrointestinal (Abdomen) Inspection/Auscultation: abdomen normal to inspection; abdomen not distended Percussion/Palpation: + abdomen tender (epigastric) and abdomen soft; no guarding and abdomen not rigid Musculoskeletal no cyanosis or clubbing, extremities motor strength 5/5 Skin no rashes, warm and dry Neurologic moves all extremities and awake; not confused Psychiatric A+Ox3, euthymic affect Discharge Data Allergies Allergy/AdvReac Type Severity Reaction Status Date / Time Cephalosporins Allergy Severe HIVES Unverified 07/28/22 10:00 cefazolin [From Anc] Allergy Unknown Unverified 07/28/22 10:00 Consultations 07/28/22 11:57 ED Decision to Admit Stat Ordered Studies 07/28/22 09:13 CT abd pelvis IV con only Stat Hospital Course (1) Acute pancreatitis: Epigastric pain and CT findings consistent with this despite minimally elevated lipase. NSS 1L bolus given in ER. started on additional 1L LR bolus now then NSS @ 200 ml/hr for additional 3L Triglyceride and LFTs normal, no CBD dilatation on CT. No alcohol use. Calcium level normal. Therefore idiopathic. The patient initially started on bowel rest and then advance his diet to clear liquid and full liquid and then regular diet, patient tolerated well, patient discharged home, patient was advised to follow-up with stock control supervisor for outpatient work-up for acute pancreatitis (2) Acute hyponatremia: Resolved (3) CAD (coronary artery disease): Continue aspirin, clopidogrel, metoprolol, atorvastatin. Plan VTE Prophylaxis - Lovenox 40mg SQ daily Diet - clear liquid, low fat, advance diet as tolerated Disposition - observation status to med/surg Total Time Total Time Spent Total Time Spent (In Minutes): 45 Discharge Plan Discharge Items Patient Disposition: Home - Self-Care Reason For Visit: ACUTE PANCREATITIS Discharge Diagnosis: Pancreatitis Activity: Resume your previous activity Lifting: Gradually increase as tolerated Bathing: No limitations Sexual Activity: When tolerated Driving/Machine Use: No limitations Weightbearing: Full weightbearing Non-emergency contact: Primary Care Provider and Emergency Response Coordinator Call non-emergency contact if: you have any medication questions and your symptoms worsen Follow-up/Referrals: Gallito Mercado MD [Primary Care Provider] - Braeden Loja MD [Physician] - (Pancreatitis with unknown etiology) Diet: Heart Healthy Jose Attending Provider Instructions: The reason for your pancreatitis unclear possibly viral, please follow-up with the stock control supervisor as I provide you with the contact information for any stock control supervisor that is recommended by your primary care doctor Jose [employer] Operator Provider Instructions: Please hold taking lisinopril, check blood pressure daily basis if the top number is more than 140 (systolic blood pressure) resume taking lisinopril Pending Studies at Discharge: No Stand-Alone Forms: [facility], Smoking Cessation Medications and DC Order Prescriptions: Continued lisinopril 5 mg tablet 5 mg PO DAILY Qty: 90 3RF metoprolol succinate 25 mg tablet extended release 24 hr 12.5 mg PO QAM 90 Days Qty: 45 3RF clopidogrel 75 mg tablet 75 mg PO DAILY Qty: 90 3RF atorvastatin 40 mg tablet 40 mg PO HS 90 Days Qty: 90 3RF aspirin 81 mg Tablet,Delayed Release (Dr/Ec) 81 mg PO QAM 30 Days Qty: 30 1RF nitroglycerin [Nitrostat] 0.4 mg Tablet, Sublingual 0.4 mg sublingual UD PRN (Reason: chest pain) 30 Days Qty: 10 1RF Discharge Orders: Discharge Order (Routine); Ordered 07/29/22 Ordered By: Florentino Blood Admission Data Admit Date/Time: 07/28/22 12:03 Attending Provider: Florentino Blood Admit Provider: Nabil Zamora Primary Care Provider: Gallito Mercado Other Providers: Nabil Zamora Other Interventions: Discharge Summary Assessment (RN) Last Done: 07/29/22 14:03 Coding Level of Care Code HOSP INP/OBS DISCH >30 MIN Diagnoses Acute pancreatitis K85.90 Acute hyponatremia E87.1 CAD (coronary artery disease) I25.10
== END 2022-07-29 19:30 | disposition home or self-care (01) ==
LOC: EDINP 08:53 → ED 08:53 → SUATTDRO 12:03 → 3N 15:24
DX: Z88.8 Allergy status to other drugs, medicaments and biological substances; I25.2 Old myocardial infarction; I25.10 Atherosclerotic heart disease of native coronary artery without angina pectoris; F17.210 Nicotine dependence, cigarettes, uncomplicated; Z79.82 Long term (current) use of aspirin; Z79.02 Long term (current) use of antithrombotics/antiplatelets; E87.1 Hypo-osmolality and hyponatremia; K85.90 Acute pancreatitis without necrosis or infection, unspecified; Z79.899 Other long term (current) drug therapy